=== PATIENT | male | born 1960 | race Caucasian/White ===

== ENCOUNTER 2018-07-30 16:31 | Inpatient (IN) | payer OTHER ==
[~2018-07-30] VITALS: Ht 182.9 cm; Wt 86.4 kg
[2018-07-30 16:40] VITALS: BP 112/61
[2018-07-30] MEDS ORDERED: MAGOX 400400 MG PO (16:44)
[2018-07-30] MEDS ORDERED: KLOR-CON 1010 MEQ PO (16:44)
[2018-07-30] MEDS ORDERED: ZANTAC 150MG T150 MG PO (16:44)
[2018-07-30] MEDS ORDERED: K-PHOS #2 TABL1 EACH PO (16:45)
[2018-07-30] MEDS ORDERED: PROTONIX40 M1 PO (16:45)
[2018-07-30] MEDS ORDERED: ONE DAILY FOR1 EACH PO (16:45)
[2018-07-30 17:05] LABS: HEMATOCRIT 36.5 % (42.0-52.0); HEMOGLOBIN 12.1 gm/dL (14.0-18.0); MCH 31.6 pg (26.0-34.0); MCHC 33.3 g/dL (28.0-37.0); MCV 95.1 fL (80.0-100.0); NUCLEATED RBCS 0 /100WBC; PLATELET COUNT* 316 thou/uL (150-400); RBC 3.84 mil/uL (4.50-6.00); RDW-CV 14.8 % (10.5-14.5); WBC 23.7 thou/uL (4.0-11.0)
[2018-07-30 17:21] LABS: ALBUMIN 1.5 g/dL (3.4-5.0); APTT 28.7 Seconds (25.0-31.3); CALCIUM 8.3 mg/dL (8.5-10.1); CREATININE 0.7 mg/dL (0.6-1.3); INR 1.3; TOTAL BILIRUBIN 0.5 mg/dL (<0.1-1.0); TOTAL PROTEIN 5.6 g/dL (6.4-8.2)
[2018-07-30 17:23] LABS: POTASSIUM 2.8 mmol/L (3.5-5.1)
[2018-07-30 17:29] LABS: INFLUENZA A ANTIGEN None Detected (None Detect); INFLUENZA B ANTIGEN None Detected (None Detect)
[2018-07-30 18:02] LABS: ABSOLUTE LYMPHOCYTES 1.7 thou/uL (0.8-5.3); ABSOLUTE MONOCYTES 0.9 thou/uL (0.0-1.2); ABSOLUTE NEUTROPHILS 21.1 thou/uL (1.6-8.1)
[2018-07-30 18:03] LABS: LARGE PLATELETS OCCASIONAL; PLATELET ESTIMATE ADEQUATE
[2018-07-30 19:38] LABS: URINE BILIRUBIN NEGATIVE (Negative); URINE BLOOD TRACE (Negative); URINE CLARITY CLEAR; URINE COLOR YELLOW; URINE GLUCOSE-RANDOM NEGATIVE (Negative); URINE KETONES NEGATIVE (Negative); URINE LEUKOCYTES-REFLEX NEGATIVE (Negative); URINE NITRITE-REFLEX NEGATIVE (Negative); URINE PROTEIN NEGATIVE (Negative); URINE SPECIFIC GRAVITY <= 1.005 (1.005-1.030)
[2018-07-30 20:03] VITALS: BP 99/53
[2018-07-30 20:04] LABS: AMP/METHAMP Negative (Negative); BARBITURATES Negative (Negative); BENZODIAZEPINES Negative (Negative); COCAINE Negative (Negative); METHADONE Negative (Negative); OPIATES Negative (Negative); PCP Negative (Negative); THC Negative (Negative)
[2018-07-30 20:22] VITALS: BP 100/57
[2018-07-31 04:00] VITALS: BP 125/60
--- NOTE | 2018-07-31 04:29 | NUR ---
ASSUMED CARE FROM THE ER AT 2020. PT IS ALERT AND OREINTED. VSS. PERRLA. UP AD BHARTI. PT REQUIRING 2 LITERS OF O2. PT GIVEN LOVENOX. PULMONARY CONSULTED. PT IS SINUS TACHYCARDIA ON THE TELEMETRY. PT IS RESTING COMFORTABLY IN BED. RESPIRATIONS ARE EVEN AND NONLABORED. WILL CONTINUE TO MONITOR PT.
[2018-07-31 08:00] VITALS: BP 111/69
--- NOTE | 2018-07-31 08:30 | NUR ---
RECEIVED REPORT AND ASSUMED CARE OF PT AT 0730.PT IS A/OX4.TRACING SR ON THE MONITOR.ON 2 L NC.IV PATENT WITH FLUIDS INFUSING.IV ANTIBIOTIC GIVEN PER ORDER.US LOWER EXTRIMITIES COMPLETED AND FOUND DVT ON BOTH LEGS,RESULT NOTIFIED TO SPUTUM CULTURE AND MRSA NARES SWAB COLLECTED.PRODUCTIVE COUGH PRESENT WITH WILL SPUTUM.NO COMPLAINTS OF PAIN AND SOA.CALL LIGHT AND FALL PRECAUTIONS IN PLACE.WILL CONTINUE TO MONITOR.
[2018-07-31 08:45] LABS: ABSOLUTE BASOPHILS 0.1 thou/uL (0.0-0.2); ABSOLUTE LYMPHOCYTES 0.5 thou/uL (0.8-5.3); ABSOLUTE MONOCYTES 0.5 thou/uL (0.0-1.2); ABSOLUTE NEUTROPHILS 19.1 thou/uL (1.6-8.1); BASOPHILS 0.3 %; HEMATOCRIT 33.7 % (42.0-52.0); LYMPHOCYTES 2.6 %; MCH 31.4 pg (26.0-34.0); MCHC 32.6 g/dL (28.0-37.0); MCV 96.6 fL (80.0-100.0); MONOCYTES 2.7 %; MPV 9.5 fl. (7.2-11.1); NUCLEATED RBCS 0 /100WBC; PLATELET COUNT* 288 thou/uL (150-400); POLYS 94.4 %; RBC 3.49 mil/uL (4.50-6.00); RDW-CV 15.1 % (10.5-14.5); WBC 20.2 thou/uL (4.0-11.0)
[2018-07-31 09:05] LABS: ALBUMIN 1.4 g/dL (3.4-5.0); CALCIUM 8.5 mg/dL (8.5-10.1); CREATININE 0.8 mg/dL (0.6-1.3); POTASSIUM 3.6 mmol/L (3.5-5.1); TOTAL BILIRUBIN 0.4 mg/dL (<0.1-1.0)
--- NOTE | 2018-07-31 10:21 | EKG ---
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: : 1960 Requested By: Ann Del Valle Order Number: [id number] MD: Clayton Rivero Measurements Intervals [place] Rate: 104 P: 92 OR: 142 QRS: 93 QRSD: 96 T: 77 QT: 376 QTc: 495 Interpretive Statements Sinus tachycardia Multiform ventricular premature complexes Anteroseptal infarct, age indeterminate No previous ECG available for comparison Electronically Signed On 07-31-2018 10:21:20 CDT by Clayton Rivero [email or web address] <ELECTRONICALLY SIGNED> By: Clayton Rivero MD, [facility] 07/31/18 102 09 09 Clayton Rivero MD, FAC /EPI
--- NOTE | 2018-07-31 11:12 | NUR ---
Pt was out of room when CM went to assess, will f/u later
[2018-07-31 12:06] VITALS: BP 97/54
[2018-07-31 15:25] VITALS: BP 98/50
--- NOTE | 2018-07-31 17:27 | 2DMMODE ---
[place] [address] 2 D/M-MODE ECHOCARDIOGRAM Name: MOLLY SEPULVEDA Room: [address] IN [facility]#: [id number] Admission: 07/30/18 Attend Phys: Brenda Whitaker, Discharge: Date of : 62 Date of Service: 07/31/18 1726 Report #: [id number] THIS REPORT FOR: //name// APPROVED REPORT Study performed: 07/31/2018 13:48:56 EXAM: Comprehensive 2D, Doppler, and color-flow Echocardiogram Patient Location: In-Patient Room #: 220 Status: routine BSA: 2.01 HR: 104 bpm BP: 111/69 mmHg Rhythm: NSR Other Information Study Quality: Good Indications Pulmonary Embolism Dyspnea 2D Dimensions IVSd: 11.90 (7-11mm) LVOT Diam: 19.16 (18-24mm) LVDd: 47.87 mm PWd: 9.91 (7-11mm) Ascending Ao: 30.40 (22-36mm) LVDs: 22.00 (25-40mm) Aortic Root: 29.55 mm Volumes Left Atrial Volume (Systole) LA ESV Index: 18.90 mL/m2 Aortic Valve AoV Peak Trae.: 1.45 m/s AO Peak Gr.: 8.43 mmHg LVOT Max P.47 mmHg AO Mean Gr.: 5.10 mmHg LVOT Mean P.80 mmHg LVOT Max V: 0.93 m/s AO V2 VTI: 23.30 cm LVOT Mean V: 0.62 m/s AILYN (VTI): 1.98 cm2 LVOT V1 VTI: 15.97 cm Mitral Valve E/A Ratio: 1.11 MV Decel. Time: 275.57 [place] [address] 2 D/M-MODE ECHOCARDIOGRAM Name: MOLLY SEPULVEDA Room: [address] IN ..#: [id number] Admission: 07/30/18 Attend Phys: Brenda Whitaker, Discharge: Date of : 62 Date of Service: 07/31/18 1726 Report #: [id number] E Max Trae.: 0.76 m/s MV PHT: 79.91 ms MVA (PHT): 2.75 cm2 TDI E/Medial E': 6.33 Medial E' Trae.: 0.12 m/s Tricuspid Valve RAP Estimate: 5.00 mmHg TR Peak Gr.: 25.03 mmHg RVSP: 30.00 mmHg PA Pressure: 30.00 mmHg Left Ventricle The left ventricle is normal size. There is normal LV segmental wall motion. There is normal left ventricular wall thickness. Left ventricular systolic function is normal. LVEF is 60-65%. The left ventricular diastolic function is normal. Right Ventricle The right ventricle is normal size. The right ventricular systolic function is normal. Atria The left atrium size is normal. The right atrium size is normal. Aortic Valve The aortic valve is normal in structure. No aortic regurgitation is present. There is no aortic valvular stenosis. Mitral Valve The mitral valve is normal in structure. There is no mitral valve regurgitation noted. No evidence of mitral valve stenosis. Tricuspid Valve The tricuspid valve is normal in structure. Mild tricuspid regurgitation. The RVSP is 30-35 mmHg. Pulmonic Valve The pulmonary valve is normal in structure. There is no pulmonic valvular regurgitation. Great Vessels The aortic root is normal in size. IVC is normal in size and collapses >50% [place] [address] 2 D/M-MODE ECHOCARDIOGRAM Name: MOLLY SEPULVEDA Room: [address] IN [facility]#: [id number] Admission: 07/30/18 Attend Phys: Brenda Whitaker, Discharge: Date of : 62 Date of Service: 07/31/18 1726 Report #: [id number] Pericardium There is no pericardial effusion. <Conclusion> The left ventricle is normal size. There is normal left ventricular wall thickness. Left ventricular systolic function is normal. LVEF is 60-65%. The left ventricular diastolic function is normal. Mild tricuspid regurgitation. The RVSP is 30-35 mmHg. IVC is normal in size and collapses >50% with inspiration. <ELECTRONICALLY SIGNED> By: Elijah Mullen MD, FACC 07/31/18 172 25 25 Elijah Mullen MD, FACC /INF
--- NOTE | 2018-07-31 17:54 | NUR ---
VSS.TRACING SR ON THE MONITOR.ON 2 L NC.IV PATENT WITH FLUIDS AND ANTIBIOTIC INFUSING.NO COMPLAINTS OF PAIN .US OF LOWER EXTREMITIES COMPLETED FOUND DVT ON BOTH LEGS.CT OF ABD/PELVIS W/C COMPLETED.NO COMPLAINTS OF SOA.NEW IV PLACED ON RAC FOR CT.NO SKIN ISSUES.UP AD BHARTI.HRLY ROUNDING COMPLETED.CALL LIGHT AND FALL PRECAUTIONS IN PLACE.WILL CONTINUE TO MONITOR.
--- NOTE | 2018-07-31 18:02 | NUR ---
I have reviewed the documentation by OLGA MCKINNEY from 729 to 1801 and I concur with it.
[2018-07-31 19:45] VITALS: BP 103/57
[2018-08-01] VITALS: BP 109/66
[2018-08-01 02:10] LABS: HIV-1/HIV-2 ANTIBODY Non Reactive (Non Reactive)
[2018-08-01 04:32] VITALS: BP 94/47
[2018-08-01 05:15] LABS: ABSOLUTE BASOPHILS 0.1 thou/uL (0.0-0.2); ABSOLUTE LYMPHOCYTES 0.7 thou/uL (0.8-5.3); ABSOLUTE MONOCYTES 0.5 thou/uL (0.0-1.2); ABSOLUTE NEUTROPHILS 16.4 thou/uL (1.6-8.1); BASOPHILS 0.3 %; LYMPHOCYTES 3.9 %; MCH 31.2 pg (26.0-34.0); MCHC 32.3 g/dL (28.0-37.0); MCV 96.6 fL (80.0-100.0); MONOCYTES 3.1 %; NUCLEATED RBCS 0 /100WBC; PLATELET COUNT* 294 thou/uL (150-400); POLYS 92.7 %; RBC 3.51 mil/uL (4.50-6.00); RDW-CV 15.1 % (10.5-14.5); WBC 17.7 thou/uL (4.0-11.0)
[2018-08-01 08:00] VITALS: BP 108/65
--- NOTE | 2018-08-01 08:02 | CON ---
[address] [address] CONSULTATION Name: SEPULVEDAMOLLY Room: [address] IN .R.#: [id number] Admission: 07/30/18 Attend Phys: Brenda Whitaker MD Discharge: Date of : 62 Report #: [id number] THIS REPORT FOR: //name// CC: Brenda Plazanh DATE OF SERVICE: 07/31/2018 INFECTIOUS DISEASE CONSULTATION: ATTENDING PHYSICIAN: Dr. Whitaker. REASON FOR EVALUATION: Complicated pneumonitis, possible lung abscess. HISTORY OF PRESENT ILLNESS: Chart reviewed, patient examined. This is a 58-year-old who reports no significant medical history, presented to the Emergency Room with complaints of progressive dyspnea and chest pain over 2-week period. Did have associated hemoptysis, was evaluated by primary care who directed him to the Emergency Room. Evaluation did not note hypoxemia; however, imaging raised question of bilateral pulmonary emboli, also possible infected blebs or abscesses in the left upper lobe. He denies any significant recent fevers. Denies any dental related complaints, although he has poor teeth. No gastrointestinal related complaints. Appetite has been somewhat diminished. He actually reports gaining 8 pounds. He had an elevated white count of 23,000. Urinalysis was otherwise unremarkable. He was started empirically on vancomycin and levofloxacin. ALLERGIES: None known. MEDICATIONS: Include levofloxacin, enoxaparin, vancomycin, methylprednisolone, famotidine, p.r.n. analgesics and antiemetics. PAST MEDICAL HISTORY: Poorly otherwise unremarkable. SOCIAL HISTORY: Smokes, last 44 years, less than half a pack a day. No illicit drug use. Distant past use of ethanol. FAMILY HISTORY: Noncontributory. REVIEW OF SYSTEMS: Otherwise unremarkable, except noted in the above. PHYSICAL EXAMINATION: VITAL SIGNS: Temperature 97.2, pulse 94, respirations 24, blood pressure 97/54. GENERAL: He appears chronically ill and undernourished. HEENT: Normocephalic. Extraocular muscle intact. Does have moderate [place] [address] CONSULTATION Name: MOLLY SEPULVEDA Room: [address] IN [facility]#: [id number] Admission: 07/30/18 Attend Phys: Brenda Whitaker MD Discharge: Date of : 62 Report #: [id number] NECK: Supple. LUNGS: Diminished breath sounds. Few scattered crackles. HEART: Regular. I do not appreciate a murmur. ABDOMEN: Soft, nontender, nondistended. EXTREMITIES: Some edema. GENITOURINARY: Deferred. RECTAL: Deferred. LABORATORY DATA: Rapid Strep A was negative. Chest x-ray, extensive left upper lobe and left perihilar dense infiltrate without significant pleural effusion. CT chest showed filling defects in the pulmonary arteries bilaterally, showed marked inflammatory changes throughout the entire left upper lobe suggesting pneumonitis, infected bulla versus pulmonary abscess, multiple bilateral small pulmonary emboli. Electrolytes showed sodium 141, potassium 2.8, chloride 97, bicarbonate is 39, BUN and creatinine 10 and 0.9, anion gap of 5, glucose of 121, AST of 55, ALT 36, alkaline phosphatase of 170, albumin of 1.5, total protein of 5.6. Estimated GFR of 116. PT of 13.0, INR of 1.3. Influenza antigen is negative. Lactic acid of 1.9 initially. Drug screen was negative. Prealbumin of 3.2. CBC: White count of 20.2, H and H 11.0 and 33.7, platelets of 288 and a lymphocytopenia of 500. A Doppler bilateral lower extremities showed nonocclusive compressible thrombus is present in the right common femoral vein as well as greater saphenous vein, noncompressible thrombus present throughout the entire right. Left common femoral is compressible, although there is noncompressible thrombus proximal left main femoral vein. ASSESSMENT: Complicated pneumonitis. Concerned about early abscess. Certainly, he is a little lax with apparently chronic medical history. I think there is probably an occult process given the hypercoagulable state. He is profound hypoalbuminemic as well. I think this warrants CT of the abdomen and pelvis, we will await blood cultures. I think it is reasonable for antimicrobials. We will add metronidazole as well for possible anaerobic due to his poor dentition, although his breath is not particularly malodorous. We will discuss with Dr. Fritz. <ELECTRONICALLY SIGNED> By: Kane Garnett MD 08/01/18 0802 1505 [id number] Garnett MD /nt
--- NOTE | 2018-08-01 10:10 | NUR ---
RECEIVED REP0RT AND ASSUMED CARE OF PT AT 0730.PT IS A/0X4.TRACING SR ON THE MONITOR.ON RA.IV PATENT WITH IV FLUIDS AND ANTIBIOTIC INFUSING.PRODUCTIVE COUGH PRESENT WITH WILL SPUTUM.GETTING LONONOX FOR DVT.ASSESSMENT COMPLETED.NO PAIN,NO SKIN ISSUES.NO EDEMA.UP AD BHARTI.HRLY COMPLETED.CALL LIGHT AND FALL PRECAUTIONS IN PLACE.WILL CONTINUE TO MONITOR.
--- NOTE | 2018-08-01 10:47 | NUR ---
Pt is A&O. Resides at home with his mom. Active and independent. No DME. No hx of HH or SNF. Goal is home at nd. No needs.
[2018-08-01 16:03] VITALS: BP 89/46
--- NOTE | 2018-08-01 17:13 | NUR ---
VSS.TRACING ST ON THE MONITOR.A/OX4.IV PATENT WITH FLUIDS INFUSING.UP AD BHARTI.IV ANTIBIOTICS GIVEN PER ORDER.VANC TROUGH TO BE DRAWN AT 1830.PERSISTENT COUGH WITH WILL SPUTUM PRESENT.NO COMPLAINTS OF PAIN AND SOA.ON RA.CXR COMPLETED TODAY.CALL LIGHT AND FALL PRECAUTIONS IN PLACE.
--- NOTE | 2018-08-01 18:00 | NUR ---
I have reviewed the documentation by OLGA MCKINNEY from 729 to 1799 and I concur with it.
[2018-08-01 20:00] VITALS: BP 112/66
[2018-08-02] VITALS (7 sets, daily range): BP systolic 95–127; BP diastolic 50–82
--- NOTE | 2018-08-02 03:42 | NUR ---
ASSUMED PT CARE AT APPROX 1930. PT IS AWAKE AND ORIENTED X4. VSS ON ROOM AIR. TRACING SR/ST ON CLINICAL RESEARCH ASSISTANT. DENIES PAIN/DISCOMFORT. PT STILL COUGHING UP WILL SPUTUM. NO DESATURATIONS NOTED. PT ABLE TO SLEEP THROUGH THE NIGHT. CALL LIGHT WITHIN REACH. HOURLY ROUNDING DONE FOR PT SATFETY.
[2018-08-02 05:26] LABS: ABSOLUTE LYMPHOCYTES 0.6 thou/uL (0.8-5.3); ABSOLUTE MONOCYTES 0.5 thou/uL (0.0-1.2); BASOPHILS 0.1 %; HEMATOCRIT 33.9 % (42.0-52.0); LYMPHOCYTES 5.2 %; MCH 31.4 pg (26.0-34.0); MCHC 32.4 g/dL (28.0-37.0); MCV 96.9 fL (80.0-100.0); MONOCYTES 4.7 %; MPV 8.9 fl. (7.2-11.1); NUCLEATED RBCS 0 /100WBC; PLATELET COUNT* 308 thou/uL (150-400); RBC 3.49 mil/uL (4.50-6.00); RDW-CV 14.6 % (10.5-14.5); WBC 11.1 thou/uL (4.0-11.0)
[2018-08-02 05:44] LABS: ALBUMIN 1.4 g/dL (3.4-5.0); CALCIUM 8.8 mg/dL (8.5-10.1); CREATININE 0.7 mg/dL (0.6-1.3); POTASSIUM 3.9 mmol/L (3.5-5.1); TOTAL BILIRUBIN 0.3 mg/dL (<0.1-1.0); TOTAL PROTEIN 5.9 g/dL (6.4-8.2)
--- NOTE | 2018-08-02 07:10 | NUR ---
CHANGE OF SHIFT, BEDSIDE REPORT GIVEN PATIENT SEEN AT BEDSIDE, IN BED ASLEEP ASSUMED PATIENT CARE
--- NOTE | 2018-08-03 02:52 | NUR ---
ASSUMED PT CARE AT APPROX 1930. PT IS AWAKE AND ORIENTED X4. VSS ON ROOM AIR. TRACING SR ON TELE. REASSESSMENT DONE AND CHARTED. PT DENIES PAIN/DISCOMFORT. NO DESATURATIONS/SOA NOTED. IV ANTIBIOTICS GIVEN PER MAY. CALL LIGHT WITHIN REACH. HOURLY ROUNDING DONE FOR PT SAFETY.
[2018-08-03 04:00] VITALS: BP 120/71
--- NOTE | 2018-08-03 07:25 | NUR ---
CHANGE OF SHIFT BEDSIDE REPORT GIVEN PATIENT SEEN AT BEDSIDE, IN BED ASLEEP ASSUMED PATIENT CARE
[2018-08-03 08:00] VITALS: BP 119/71
[2018-08-03 11:39] VITALS: BP 106/58
[2018-08-03 23:58] VITALS: BP 103/60
[2018-08-04 04:00] VITALS: BP 114/69
--- NOTE | 2018-08-04 04:30 | NUR ---
ASSUMED PT CARE AFTER REPORT. PT IS AWAKE AND ORIENTED X4. VSS ON ROOM AIR. FLOAT PHLEBOTOMIST IN PLACE TRACING SR. REASSESSMENT DONE AND CHARTED. PT DENIES PAIN/DISCOMFORT/SOA. PT ABLE TO SLEEP MOST OF THE NIGHT. CALL LIGHT WITHIN REACH. HOURLY ROUNDING DONE FOR PT SAFETY.
--- NOTE | 2018-08-04 08:27 | CON ---
[address] [address] CONSULTATION Name: DERICKMOLLY Ronnie Room: [address] IN M.R.#: [id number] Admission: 07/30/18 Attend Phys: Brenda Whitaker MD Discharge: Date of : 62 Report #: [id number] THIS REPORT FOR: //name// CC: Brenda Freeman DATE OF SERVICE: 07/31/2018 REQUESTING PHYSICIAN: Dr. Fritz. REASON FOR CONSULTATION: Pulmonary emboli, DVT, abnormal CAT scan. DISCUSSION: The patient is a 58-year-old man who presented to Dr. Freeman's office yesterday. He was a new patient for her, previously he been seen by physicians at [facility]. He was complaining of weakness. Over the last week or so, he has been coughing up some blood. This time, it has been darker brown. It has been non-massive. He was starting to get more short of breath. He quit smoking about 12 years ago. He is not on any inhalers or breathing treatments at home nor oxygen. When he was seen in the ED with hemoptysis, he was referred to the ED here at [facility]. He was seen there. Had imaging studies done, which included a CT scan of his chest that showed pulmonary emboli bilaterally. Also, question of pulmonary abscess versus infected emphysematous changes. He has also had imaging studies now done of his legs. Does have bilateral DVT noted. He has been started on high dose Lovenox. He is not a very forthcoming historian. Apparently, he has had several hospital stays and visits at [facility]. He was quite insistent that he was never told anything. However, when talking with him further, it appears he has had an extensive evaluation done there. He has had CAT scans done, head and abdomen. It is not clear if he had CT scans done of his chest. He has had several types of endoscopies. Unknown if these have been all upper endoscopy or if he has also had a bronchoscopy. He finally did admit they were concerned about his liver. They thought some of his issues were related to liver disease. He was not aware of any history of any clots, however. He has a history of tobacco abuse, but quit smoking greater than 10 years ago. He has not had pneumonia in the past that he is aware of. Denies any history of TB or exposure to it that he is aware of. Denies any fci time nor use of any other drugs. He notes his last drink of alcohol was 2 weeks ago. He ____ amount he was drinking prior to that, but does note that the physicians at [facility] were concerned about his alcohol use and his liver disease. He is able to tell me that he had a lot of labs which were abnormal. Also, he [place] [address] CONSULTATION Name: MOLLY SEPULVEDA Room: [address] IN ..#: [id number] Admission: 07/30/18 Attend Phys: Brenda Whitaker MD Discharge: Date of : 62 Report #: [id number] Otherwise, he denies having any other past medical history. Again, however, he is not very forthcoming. MEDICATIONS: He was provided from [facility] include mag oxide, Zantac, potassium, K-Phos, Protonix, multivitamins and folic acid. SOCIAL HISTORY: Former smoker as noted. Last drink alcohol 2 weeks ago. 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 FAMILY HISTORY: Positive for leukemia. Denies any lung disease in his family or other types of cancers. REVIEW OF SYSTEMS: ROS was done. No positives already noted above. He denies any difficulty swallowing. He states since April, he has lost about 70 pounds. Appetite has been fair. Denies any hematemesis or blood in his stools. He has had issues with lower extremity edema. No syncopal episodes; however, he has been weak. He denies any syncopal episodes. No recent dental work. PHYSICAL EXAMINATION: GENERAL APPEARANCE: A male who looks chronically ill and older than stated age. He is in no acute distress. He has no hemoptysis during the time I was seeing him or examining him. HEENT: Head is normocephalic. Sclerae nonicteric. Dentition is fair to poor. NECK: Negative for adenopathy. No JVD is noted. No supraclavicular adenopathy. HEART: Regular. He is mildly tachycardic. No S3 is heard. LUNGS: Show breath sounds to be diminished. A few faint crackles heard on the left side. No wheezing is heard. No dullness to percussion. Excursion is equal. No CVA tenderness. ABDOMEN: Soft, but mildly distended. Does appear to have some anasarca. He does have edema noticed lower extremities, at least 2+. Does have some generalized discomfort noted. SKIN: Turgor is fair. No clubbing is noted. NEUROLOGIC: He is alert and oriented x 3. LABORATORY AND X-RAY FINDINGS: Films were reviewed. He did have a portable chest film done initially, which did show extensive infiltrates seen on the left side. This was followed up with a CT scan of his chest. He had bilateral pulmonary emboli seen. He also has extensive consolidation seen on the left side. He has infected blebs or abscesses on the left side. No pleural effusions. No infiltrates noted on the right side. On his chemistries, BUN is 8, creatinine 0.8, bicarbonate is 31, potassium yesterday was 2.8, it is 3.6 today. Albumin 1.4. Total protein 6.0. Transaminase is normal. Lipase was 477, alkaline phosphatase 141. INR was 1.3. D-dimer 7.76. Drug screen was negative. White blood cell count yesterday 23,700 and 20,200 [place] [address] CONSULTATION Name: MOLLY SEPULVEDA Room: [address] IN [facility]#: [id number] Admission: 07/30/18 Attend Phys: Brenda Whitaker MD Discharge: Date of : 62 Report #: [id number] 11.0, hematocrit 33.7, MCV 96.6. Platelets are normal. Does have a mild lymphopenia. Influenza screen was negative. Prealbumin 3.2. Rapid Strep screen was negative. UA was positive for small amounts of blood. Blood cultures have been sent. Sputum culture is also pending. Venous Dopplers were done, which does show bilateral DVT, right greater than left. IMPRESSION: 1. Thromboembolic disease. He has bilateral lower extremity deep venous thrombosis as well as bilateral pulmonary emboli. He has been relatively inactive at home actually since the first of the year. It is not clear if he may have other risk factors such as an underlying malignancy. 2. Extensive infiltrate left lung. Either has potential abscess or infected bleb with air fluid levels. He does have marked emphysematous changes. Some of this could be infection. 3. Non-massive hemoptysis. May be from pulmonary embolism. 4. Anemia. 5. Elevated lipase, alkaline phosphatase. By history, he was told he had some liver abnormalities at [facility]. It is not clear what their testing revealed there. 6. History of alcohol abuse. 7. Possible chronic obstructive pulmonary disease. Definite emphysematous changes on films. 8. Weight loss. It is not clear. 9. Protein-calorie malnutrition. Low albumin and protein levels. Some of this could be from decreased synthesis from the liver. Also, poor nutritional intake. RECOMMENDATIONS: 1. Discussed earlier with Dr. Garnett. He is doing imaging studies of his abdomen and pelvis. 2. We will need to get records from [facility]. Already, sounds like he has had an extensive evaluation. Need to see what those studies showed. 3. Would continue with anticoagulation therapy at this time. I will hold on bronchoscopy. 4. Follow up cultures as well. 5. Agree with broad-spectrum antibiotics. 6. Also, continue with neb treatments at this time. <ELECTRONICALLY SIGNED> By: Leigh Drake MD 08/04/18 0827 1550 [id number] Drake MD /nt
--- NOTE | 2018-08-04 08:27 | CON ---
[address] [address] CONSULTATION Name: MOLLY SEPULVEDA Room: [address] ADM IN M.R.#: [id number] Admission: 07/30/18 Attend Phys: Brenda Whitaker MD Discharge: Date of : 62 Report #: [id number] THIS REPORT FOR: //name// CC: Brenda Whitaker [facility] ADDENDUM Records from [facility] have become available. He has had hospitalizations there earlier this year. Based on those notes, it also appears he has had a prior hospitalization at [facility], which he had not disclosed to us. Reviewing those records, he apparently presented with weakness. He also had active alcohol withdrawal. He had markedly abnormal LFTs. He had extensive imaging studies done. He had a CT scan done of his chest on 05/25/2018. The notes indicate that he had "moderate emphysematous changes". There was no consolidation noted. He did have a 0.3 cm pulmonary nodule in the left upper lobe. He had no mediastinal or hilar adenopathy. No pleural effusions. He had an MRI done, which revealed marked hepatomegaly with severe hepatic steatosis. He had circumferential gallbladder wall thickening with edema. He had two complex cystic lesions seen in the pancreatic head and uncinate process. There was also note of a subtle slightly enhancing solid-appearing 2 cm area at the junction of the pancreatic head and uncinate process. He did have a clinic visit on 07/10/2018 to one of the [facility]. LABORATORY DATA: Labs done at that time revealed a normal BUN and creatinine. Albumin 3.3. Bilirubin was 1.1, alkaline phosphatase 153, AST 25 and ALT 10. White blood cell count 5300, hemoglobin 13.8, hematocrit of 41.5 and MCV 101. When he was hospitalized in late May at [facility], his LFTs were markedly elevated. A fairly extensive evaluation done. He also had the CT scan done of his abdomen and pelvis. Other laboratory evaluation done at that time revealed his HIV was negative. Alpha-1 antitrypsin level was negative. Additional labs included negative Sjogren's antibodies, TWAN-1 AB, negative Scl-70 antibody, ANCA screen was negative, KEERTHI screen was negative, mitochondrial antibody was negative. He also had testing for hemochromatosis. 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 The information sent, I do not see any EGDs, bronchoscopies for colonoscopies. <ELECTRONICALLY SIGNED> By: Leigh Drake MD 08/04/18 0827 1159 [id number] Drake MD /nt
--- NOTE | 2018-08-04 08:45 | NUR ---
REC'D REPORT FROM NOC RN, ASSUMED CARE OF PATTIENT APPROX 0730. A&OX4. ABLE TO COMMUNICATE NEEDS TO STAFF. ASSESSMENT COMPLETE, VS OBTAINED. HAIR STYLIST IN PLACE, NAEEM MARSHALL. O2 SATS 93% RA. PATIENT UP AD BHARTI IN ROOM WITH NONSKID SOCKS ON BLE. LOOKING FORWARD TO BEING DC'D TODAY. EDUCATION GIVEN R/T DC PROCESS. ANSWERED QUESTIONS TO PATIENT SATISFACTION. CALL LIGHT WITHIN REACH. HOURLY ROUNDING FOR SAFETY AND PATIENT NEEDS.
[2018-08-04 09:32] VITALS: BP 101/65
--- NOTE | 2018-08-04 12:17 | NUR ---
Pt discharging to home today, mother to provide dc transportation. CM provided Pt with a 30 day free Xarelto card, with instructions to get in to see his PCP as soon as possible, for continued assistance with med coverage. Pt stated that he does have health insurance through the [employer], states that his card came while he has been in the hospital. CM encouraged Pt to provide a copy to the hospital. Following.
[2018-08-04] MEDS ORDERED: XARELTO15 MG PO (12:53)
[2018-08-04] MEDS ORDERED: SPIRONOLACTONE25 M1 PO (12:54)
[2018-08-04] MEDS ORDERED: LEVAQUIN 500 M500 M2 PO (12:55)
[2018-08-04 13:02] VITALS: BP 101/65
--- NOTE | 2018-08-04 14:50 | NUR ---
PATIENT WITH COMPLETE DC ORDER. REVIEWED DISCHARGE INSTRUCTIONS AND MEDICATION LIST WITH PATIENT. ANSWERED ALL QUESTIONS TO PATIENT SATISFACTION. PATIENT'S IV AND TOURIST ESCORT HAVE BEEN DISCONTINUED. PATIENT IN POSSESSION OF ALL BELONGINGS. PATIENT AMBULATED OFF UNIT WITH THIS RN TO EMERGENCY DEPARTMENT EXIT. PATIENT'S MOTHER TO TRANSPORT PAITENT HOME IN PERSON VEHICLE.
== END 2018-08-04 14:45 | disposition home or self-care (01) | DRG 871 ==
LOC: M.ERS 16:31 → M.2W 18:28 → M.TBA-ER 18:28 → M.2W 19:32
PROVIDERS: Internal Medicine; Physician Assistant; Specialist; ADMIT Internal Medicine
DX: A41.9 Sepsis, unspecified organism (principal); I26.99 Other pulmonary embolism without acute cor pulmonale; J85.1 Abscess of lung with pneumonia; E46 Unspecified protein-calorie malnutrition; R18.8 Other ascites; I82.493 Acute embolism and thrombosis of other specified deep vein of lower extremity, bilateral; D64.9 Anemia, unspecified; J43.9 Emphysema, unspecified; K70.9 Alcoholic liver disease, unspecified; Z91.14 Patient's other noncompliance with medication regimen; Z68.25 Body mass index [BMI] 25.0-25.9, adult; Z87.891 Personal history of nicotine dependence; Z79.899 Other long term (current) drug therapy

== ENCOUNTER 2018-08-05 10:05 | Inpatient (IN) | payer OTHER ==
[~2018-08-05] VITALS: Ht 182.9 cm; Wt 87.1 kg
[~2018-08-05 10:05] MED LIST: K-PHOS #2 TABL1 EACH PO; KLOR-CON 1010 MEQ PO; LEVAQUIN 500 M500 M2 PO; MAGOX 400400 MG PO; ONE DAILY FOR1 EACH PO; PROTONIX40 M1 PO; SPIRONOLACTONE25 M1 PO; XARELTO15 MG PO; ZANTAC 150MG T150 MG PO
[2018-08-05 10:09] VITALS: BP 118/54
--- NOTE | 2018-08-05 10:25 | NUR ---
RT AT BEDSIDE ADMINISTERING BREATHING TREATMENT.
[2018-08-05 10:35] LABS: HEMATOCRIT 38.7 % (42.0-52.0); HEMOGLOBIN 12.6 gm/dL (14.0-18.0); MCHC 32.6 g/dL (28.0-37.0); MCV 95.1 fL (80.0-100.0); NUCLEATED RBCS 0 /100WBC; PLATELET COUNT* 412 thou/uL (150-400); RBC 4.07 mil/uL (4.50-6.00); RDW-CV 15.3 % (10.5-14.5); WBC 27.7 thou/uL (4.0-11.0)
[2018-08-05 10:42] LABS: ANION GAP 3 mmol/L (7-16); APTT 32.1 Seconds (25.0-31.3); BUN 10 mg/dL (7-18); CHLORIDE 97 mmol/L (98-107); CO2 34 mmol/L (21-32); CREATININE 0.8 mg/dL (0.6-1.3); GLUCOSE 89 mg/dL (70-99); INR 1.4; POTASSIUM 3.7 mmol/L (3.5-5.1); PROTIME 14.5 Seconds (9.20-11.50); SODIUM 134 mmol/L (136-145)
[2018-08-05 10:53] LABS: ALBUMIN 1.7 g/dL (3.4-5.0); ALKALINE PHOSPHATASE 102 U/L (46-116); NT-PRO BRAIN NAT PEPTIDE 696 pg/mL (<300); SGOT 20 U/L (15-37); SGPT 20 U/L (30-65); TOTAL BILIRUBIN 0.5 mg/dL (<0.1-1.0); TOTAL PROTEIN 5.7 g/dL (6.4-8.2); TROPONIN-I LEVEL <0.06 ng/mL (<0.06)
[2018-08-05 10:56] LABS: ABSOLUTE LYMPHOCYTES 0.6 thou/uL (0.8-5.3); ABSOLUTE MONOCYTES 2.8 thou/uL (0.0-1.2); ABSOLUTE NEUTROPHILS 24.4 thou/uL (1.6-8.1)
[2018-08-05 10:57] LABS: ANISOCYTOSIS 1+; PLATELET ESTIMATE INCREASED; POIKILOCYTOSIS 1+
--- NOTE | 2018-08-05 11:38 | NUR ---
KIRK NOTIFIED UPON PT RETURN FROM CT. PT CONNECTED TO O2. KIRK CONNECTED PT TO MONITOR
[2018-08-05 12:13] LABS: BE 3.9 mmol/L (-2 to +3); PCO2 45.7 mmHg (35.0-45.0); PO2 80.6 mmHg (75.0-100.0)
--- NOTE | 2018-08-05 12:48 | NUR ---
RT AT BEDSIDE ADMINISTERING BREATHING SECOND TREATMENT.
--- NOTE | 2018-08-05 14:47 | NUR ---
REPORT GIVEN TO OLGA RODRIGUEZ WHO IS TO ASSUME PT CARE INPATIENT NURSE.
[2018-08-05 14:48] VITALS: BP 103/50
[2018-08-05 16:07] LABS: URINE BILIRUBIN NEGATIVE (Negative); URINE BLOOD TRACE (Negative); URINE CLARITY CLEAR; URINE COLOR YELLOW; URINE GLUCOSE-RANDOM NEGATIVE (Negative); URINE KETONES NEGATIVE (Negative); URINE LEUKOCYTES NEGATIVE (Negative); URINE NITRITE NEGATIVE (Negative); URINE PROTEIN NEGATIVE (Negative); URINE SPECIFIC GRAVITY <= 1.005 (1.005-1.030); URINE UROBILINOGEN 0.2 E.U./dl (0.2-1.0)
[2018-08-05 16:11] VITALS: BP 90/64
--- NOTE | 2018-08-05 17:05 | EKG ---
[place] [address] ELECTROCARDIOGRAM REPORT Name: MOLLY SEPULVEDA Room: [address] ADM IN [facility].#: [id number] Admission: 08/05/18 Attend Phys: Imer Interiano Discharge: Date of : 62 Report #: [id number] THIS REPORT FOR: //name// [facility] ED Test Date: 2018-08-05 Test Time: 10:14:10 Pat Name: MOLLY SEPULVEDA Department: Room: [facility] Gender: M Outsole Scheduler: Ronnie HINTON : 1960 Requested By: Ann Del Valle Order Number: [id number] MD: Elijah Mullen Measurements Intervals [place] Rate: 132 P: 96 CA: 117 QRS: 89 QRSD: 85 T: -30 QT: 339 QTc: 503 Interpretive Statements Sinus tachycardia Low voltage, precordial leads Borderline repolarization abnormality Prolonged QT interval Compared to ECG 07/30/2018 17:10:53 Low QRS voltage now present Prolonged QT interval now present Ventricular premature complex(es) no longer present Myocardial infarct finding no longer present Electronically Signed On 08-05-2018 17:04:55 CDT by Elijah Mullen [email or web address] <ELECTRONICALLY SIGNED> By: Elijah Mullen MD, FACC 08/05/18 1704 1014 1014 Elijah Mullen MD, FAC /EPI
--- NOTE | 2018-08-05 18:36 | NUR ---
PT. ARRIVED TO ROOM 202. PT A/OX4, VSS, MONITOR PLACED TRACING ST. PT. DENIES CURRENT PAIN. ON 4L NC, WITH PRODUCTIVE COUGH. LUNG VIERA ARE DIMINISHED/TIGHT, BUT NO CURRENT WHEEZING/COARSENESS NOTED. FULL ASSESSMENT AND ADMISSION PROCESS COMPLETED. PT. EXHIBITS IAN. LE EDEMA, GREAT ON RIGHT THAN LEFT 3+. PT. ORIENTED TO ROOM/PROCEDURES. CALL LIGHT IN REACH, WILL CONTINUE WITH PLAN OF CARE.
[2018-08-05 20:00] VITALS: BP 95/64
[2018-08-05 23:39] VITALS: BP 117/70
[2018-08-06 04:00] VITALS: BP 110/57
--- NOTE | 2018-08-06 07:47 | NUR ---
PATIENT IS ALERT AND ORIENTED X4. VSS, O2 SUPPORT NC 4L/M. HE HAS DIFFICULTY BREATHING WHILE LAYING ON BED, EXTRA PILLOWS PROVIDED FOR SUPPORT. NS RUNNING AT 100 MLS/HR.
[2018-08-06 08:00] VITALS: BP 104/58
--- NOTE | 2018-08-06 11:26 | NUR ---
Pt is A&O. Known to this CM from previous hospital stay, Pt was just dc a few days ago. During that stay, Pt stated that he now has health insurance through the [employer], Pt states that he did not bring in his card. Pt is independent. Resides at home with his mom. No DME or hx of HH/SNF. Goal is home at nd. Cm provided Pt with Xarelto card during last hospital stay. Following.
[2018-08-06 12:16] VITALS: BP 97/53
--- NOTE | 2018-08-06 12:34 | NUR ---
ASSUMED CARE OF PT AT 0730. PT SITTING ON EDGE OF BED. PT A&0X4, DENIES ANY PAIN OR SHORTNESS OF BREATH AT THIS TIME. PT TRACING ST ON THE SPRAY GUN SIZER. RATE IN THE LOW 100'S. PT ON 4L NC SAT UPPER 90'S. IVF. IV ABX. PT UP AD BHARTI IN ROOM. EDEMA NOTED TO BILATERAL LE'S. PT GOAL FOR TODAY IS IV ABX, INCREASE ACTIVITY AND TITRATE OXYGEN. AM ASSESSMENT CHARTED. MEDICATIONS PER MAY. PT REPOSITIONS SELF. HOURLY ROUNDING OBSERVED. BED IN LOW POSITION. CALL LIGHT WITHIN REACH. WILL CONTINUE PLAN OF CARE.
[2018-08-06 16:20] VITALS: BP 106/54
--- NOTE | 2018-08-06 18:39 | NUR ---
NO ACUTE CHANGES THROUGHOUT SHIFT. REFER TO CHARTING. PULMONARY CONSULT ORDERED TODAY PER DR HEBERT. MRSA SWAB OBTAINED AND SENT TO LAB. AWAITING RESULTS. PT PLACED IN CONTACT ISOLATION. PT SLOWLY PROGRESSING TOWARDS GOALS. CONTINUES TO TRACE SR/ST ON THE DELIVERY TRUCK DRIVER HEAVY. ON 4L NC SAT UPPER 90'S. PT DENIES ANY PAIN OR SHORTNESS OF BREATH THROUGHOUT SHIFT. IVF. PT UP AD BHARTI IN ROOM. MEDICATIONS PER MAY. PT REPOSITIONS SELF. HOURLY ROUNDING OBSERVED. BED IN LOW POSITION. CALL LIGHT WITHIN REACH. WILL CONTINUE PLAN OF CARE.
[2018-08-06 20:00] VITALS: BP 118/70
[2018-08-07] VITALS: BP 104/67
[2018-08-07 04:00] VITALS: BP 111/62
--- NOTE | 2018-08-07 04:39 | NUR ---
ASSUMED PT CARE AT APPROX 1930. PT IS AWAKE AND ORIENTED X4. VSS ON 4L/NC. CARD TABLE ATTENDANT IN PLACE TRACING ST. REASSESSMENT DONE AND CHARTED. PT IS SHORT OF AIR, STOPPED IVF AND DR PULLIAM INFORMED. NO FURTHER ORDERS RECIEVED. PT REMAINED ON SITTING POSITION TO SLEEP. PT STATED BREATHING IMPROVED A LITTLE WITH BREATHING TREATMENTS. CLOSELY MONITORED. HOURLY ROUNDING DONE FOR PT SAFETY. CALL LIGHT WITHIN REACH.
[2018-08-07 05:35] LABS: BASOPHILS 0.1 %; EOSINOPHILS 0.2 %; HEMATOCRIT 34.7 % (42.0-52.0); HEMOGLOBIN 11.3 gm/dL (14.0-18.0); LYMPHOCYTES 6.4 %; MCH 30.8 pg (26.0-34.0); MCHC 32.5 g/dL (28.0-37.0); MCV 94.9 fL (80.0-100.0); MONOCYTES 7.8 %; MPV 7.9 fl. (7.2-11.1); NUCLEATED RBCS 0 /100WBC; POLYS 85.5 %; RBC 3.66 mil/uL (4.50-6.00); RDW-CV 14.8 % (10.5-14.5)
[2018-08-07 05:45] LABS: ABSOLUTE LYMPHOCYTES 0.7 thou/uL (0.8-5.3); ABSOLUTE MONOCYTES 0.9 thou/uL (0.0-1.2); ABSOLUTE NEUTROPHILS 9.8 thou/uL (1.6-8.1); PLATELET COUNT* 315 thou/uL (150-400); WBC 11.5 thou/uL (4.0-11.0)
[2018-08-07 07:39] VITALS: BP 124/73
--- NOTE | 2018-08-07 09:03 | NUR ---
ASSUMED CARE OF PT AT 0730. PT RESTING IN BED WAITING FOR BREAKFAST. PT A&0X4, DENIES ANY PAIN OR SHORTNESS OF BREATH AT THIS TIME. PT TRACING SR/ST ON THE TITLE COORDINATOR. ON 4L NC SAT 98%. PT HAS PRODUCTIVE COUGH WITH THICK, BROWN AND YELLOW SPUTUM. SPUTUM SPECIMEN OBTAINED AND SENT TO LAB. PT UP AD BHARTI IN ROOM. PT TO HAVE REPEAT CXR THIS AM. PT GOAL FOR TODAY IS TO TITRATE OXYGEN, INCREASE ACTIVITY, AWAIT MRSA LAB RESULTS AND PULMONARY CONSULT. AM ASSESSMENT CHARTED. MEDICATIONS PER MAY. PT REPOSITIONS SELF. HOURLY ROUNDING OBSERVED. BED IN LOW POSITION. CALL LIGHT WITHIN REACH. WILL CONTINUE PLAN OF CARE.
[2018-08-07 11:41] VITALS: BP 130/73
[2018-08-07 16:01] VITALS: BP 128/80
--- NOTE | 2018-08-07 16:50 | NUR ---
NO ACUTE CHANGES THROUGHOUT SHIFT. REFER TO CHARTING. PT NOT PROGRESSING TOWARDS GOALS. MRSA RESULTS PENDING. PULMONARY CONSULT IN PLACE- ORDERS RECEIVED FOR IVC FILTER, LABS AND AFB CULTURE AND SMEAR. SPUTUM OBTAINED AND SENT TO LAB. PLAN IS FOR IVC FILTER TOMORROW 08/08. NEW IV PLACED TO L HAND. PT CONTINUES TO TRACE SR/ST ON THE CROSSBAR FRAME WIRER. ON 4L NC SAT UPPER 90'S. PT HAS SHORTNESS OF BREATH WITH EXERTION. PT UP AD BHARTI IN ROOM. DAUGHTER TO VISIT THIS AFTERNOON. MEDICATIONS PER MAY. PT REPOSITIONS SELF. HOURLY ROUNDING OBSERVED. BED IN LOW POSITION. CALL LIGHT WITHIN REACH. WILL CONTINUE PLAN OF CARE.
[2018-08-07 20:00] VITALS: BP 101/56
[2018-08-08] VITALS (8 sets, daily range): BP systolic 93–122; BP diastolic 48–72
--- NOTE | 2018-08-08 03:34 | NUR ---
ASSUMED PT CARE AT APPROX 1930. PT IS AWAKE AND ORIENTED X4. VSS ON 4L OF O2/NC. WORM FARMER IN PLACE TRACING SR/ST. REASSESSMENT DONE AND CHARTED. FOR IVC FILTER PLACEMENT IN AM. MAINTAINED NPO POST MIDNIGHT. NO DESATURATIONS NOTED. PT DENIES PAIN. WAS ABLE TO SLEEP SOME. CALL LIGHT WITHIN REACH. HOURLY ROUNDING DONE FOR PT SAFETY.
[2018-08-08 04:42] LABS: ABSOLUTE LYMPHOCYTES 0.3 thou/uL (0.8-5.3); ABSOLUTE MONOCYTES 0.2 thou/uL (0.0-1.2); ABSOLUTE NEUTROPHILS 7.7 thou/uL (1.6-8.1); BASOPHILS 0.4 %; EOSINOPHILS 0.6 %; HEMATOCRIT 32.6 % (42.0-52.0); HEMOGLOBIN 10.8 gm/dL (14.0-18.0); LYMPHOCYTES 4.1 %; MCH 31.5 pg (26.0-34.0); MCHC 33.2 g/dL (28.0-37.0); MCV 94.7 fL (80.0-100.0); MONOCYTES 2.8 %; MPV 8.2 fl. (7.2-11.1); NUCLEATED RBCS 0 /100WBC; PLATELET COUNT* 276 thou/uL (150-400); POLYS 92.1 %; RBC 3.44 mil/uL (4.50-6.00); RDW-CV 14.5 % (10.5-14.5); WBC 8.4 thou/uL (4.0-11.0)
--- NOTE | 2018-08-08 08:00 | NUR ---
REC'D REPORT FROM NOC RN, ASSUMED CARE OF PATIENT AT APPROX 0730. A&OX4, ABLE TO COMMUNICATE NEEDS TO STAFF. NPO FOR IVC FILTER PLACEMENT. PATIENT AWARE AND AGREEABLE TO THIS PLAN. ASSESSMENT COMPLETE. CALL LIGHT IN REACH.
--- NOTE | 2018-08-08 08:20 | NUR ---
REC'D REPORT FROM NOC RN, ASSUMED CARE OF PATIENT APPROX 0730. A&OX4, ABLE TO COMMUNICATE NEEDS TO STAFF. UP AD BHARTI IN ROOM, NPO FOR IR PROCEDURE TO PLACE IVC FILTER. CALL LIGHT WITHIN REACH. DIRECTOR OF PHYSICAL SECURITY IN PLACE, SR. HOURLY ROUNDING FOR SAFETY AND PATIENT NEEDS.
--- NOTE | 2018-08-08 09:40 | NUR ---
PATIENT OFF UNIT AT 0850 VIA BED AND IR STAFF. BACK FROM PROCEDURE AT 0920, REC'D REPORT FROM IR RN. PATIENT A&OX4. ABLE TO COMMUNICATE NEEDS TO STAFF. UNDERSTANDS AND IS AGREEABLE TO PLAN TO REMAIN SITTING UP UNTIL 1215. PT STATES, "YOU WILL MAKE SURE I STAY SITTING UP, RIGHT?" GOAL ESTABLISHED. VS OBTAINED, ASSESSMENT COMPLETED. LABOR OPERATOR IN PLACE, SR 70'S. O2 SATS 97& ON RA. PATIENT STATES, "CAN I GET SOME OF THAT PORTABLE OXYGEN FOR AT HOME?" EDUCATION GIVEN R/T QUALIFICATION FOR HOME O2 AND DEMONSTRATED PATIENT'S ROOM AIR STATUS AT THIS TIME. PATIENT STATES "BUT I WAS ON OXYGEN BEFORE." CONTINUED EDUCATION R/T OXYGEN NEEDS WILL BE NECESSARY. CALL LIGHT WITHIN REACH. NEXT BP AT 1000. HOURLY ROUNDING FOR SAFETY AND PATIENT NEEDS.
--- NOTE | 2018-08-08 12:02 | CON ---
[address] [address] CONSULTATION Name: SONNY SEPULVEDA Room: [address] IN .R.#: [id number] Admission: 08/05/18 Attend Phys: Imer Interiano Discharge: Date of : 62 Report #: [id number] THIS REPORT FOR: //name// CC: Manju Freeman DO Sonny Peña DO REQUESTING PHYSICIAN: Dr. Sonny Peña. REASON FOR CONSULTATION: Pneumonia, abnormal CAT scan, respiratory failure. DISCUSSION: The patient is a 58-year-old man who has a history of tobacco and alcohol abuse. He was just discharged from this facility on 08/04/2018 where he had been hospitalized and treated for pneumonia. Imaging studies at that time revealed fluid-filled blebs on the left side. However, he had extensive pulmonary emboli as well as extensive bilateral lower extremity DVT. He was started on anticoagulation therapy. He had been admitted because of nonmassive hemoptysis. That did improve. He was doing well, was not requiring any oxygen and he was discharged as noted. He was started on antibiotics. He notes he was able to get his Xarelto for use. He was afebrile and on room air at the time that he left the hospital. He was not having excessive amounts of secretions. Tentative plan was for him to complete a course of antibiotics, steroids and inhaled bronchodilators. Would need followup imaging in the future. Given the large clot burden that he had, he was not thought to be a good candidate for bronchoscopy at this time. He is somewhat vague as to when he did quit smoking. He did have hospital stays earlier this year at [place] and then several at [facility]. He had a clinic followup at [place] as well. He did have active alcohol withdrawal when he was at [facility] earlier this year. We were able to review results from those admissions. With the active alcohol withdrawal, also had markedly elevated LFTs. He had a significant weight loss. It was thought he probably had alcoholic hepatitis. He was counseled to stop drinking completely. He did have a CT scan done of his chest on 05/25/2018 at [facility]. Reports indicated that he had a "moderate emphysematous changes." No consolidation. He had a 0.3 cm nodule in the left upper lobe. There was no mediastinal or hilar adenopathy, no pleural effusions. He had extensive GI evaluation done though did not have any endoscopies as far as we could tell. He had markedly elevated LFTs, although it did improve. During that stay, additional serologies included alpha 1 antitrypsin level, which was negative, ANCA screen was negative, HIV was negative, currently he did have heterozygous for hemochromatosis mutation. It does appear when he had a followup in the [facility] in mid June, lab from that visit showed his LFTs [place] [address] CONSULTATION Name: SONNY SEPULVEDA Room: [address] IN ..#: [id number] Admission: 08/05/18 Attend Phys: Imer Interiano Discharge: Date of : 62 Report #: [id number] PAST MEDICAL HISTORY: As noted above. Denies any other types of surgeries. SOCIAL HISTORY: Smoker as noted. However, he quit some time ago, but was vague as to the amount. Also, has a history of alcohol abuse where he notes his last drink of alcohol was earlier this spring. FAMILY HISTORY: Positive for leukemia. No other lung disease in the family. REVIEW OF SYSTEMS: As noted above, he has had no additional cesia hemoptysis since discharge. Sputum, however, has been "like pus." He described it as yellowish-green, at times Brown. This year he has lost a total of about 70 pounds. Adin was aware of that and it was one of the keys of their evaluation. Ongoing issues with quite a bit of lower extremity edema. He denies any recent dental work. No palpitations, no syncopal episodes. He denies any vomiting. He has had no syncopal episodes. Although he had felt pretty good at the time of discharge, within 24 hours, he felt much weaker and rundown. PHYSICAL EXAMINATION: GENERAL APPEARANCE: A man who looks older than stated age. He does look chronically ill. Has O2 running via nasal cannula. HEENT: Head is normocephalic. Sclerae nonicteric. Mucous membranes are moist. Dentition is poor. NECK: Negative for adenopathy. Neck muscles well developed. Neck veins are little prominent. There is no supraclavicular adenopathy. HEART: Regular. He is mildly tachycardic at 122 beats per minute. No S3 is appreciated. LUNGS: Reveal breath sounds to be mildly diminished in general. Slight prolongation of expiratory phase. He does have a few faint rhonchi and crackles heard, primarily on the left side. There is no dullness to percussion. No subcutaneous emphysema. No CVA tenderness. ABDOMEN: Soft, without hepatosplenomegaly. No guarding or rebound tenderness. EXTREMITIES: He has no clubbing. Radial pulses are present. Lower extremities does have 3+ edema. SKIN: Turgor is fair. LABORATORY AND X-RAY FINDINGS: He had laboratory studies done when he was here earlier this month as well. Arterial blood gas done revealed a pH 7.42, pCO2 of 46, pO2 of 81, bicarbonate 29 with a saturation of 96% on 4 liters. White blood cell count up to 27,700 yesterday, down to 11,500 today. Hemoglobin 11.3, hematocrit 34.7. Platelets are normal. Overall, it appears his hemoglobin and hematocrit has been fairly stable. Prealbumin last week was only 4.6. His HIV was negative. Influenza screen was negative. Rapid strep screen was negative. Sputum culture was sent on his first hospital stay. The final culture stated only that it was "routine respiratory donna." AFB smear and culture was requested, but that was not done. Blood cultures [place] [address] CONSULTATION Name: SONNY SEPULVEDA Room: [address] IN [facility].#: [id number] Admission: 08/05/18 Attend Phys: Imer Interiano Discharge: Date of : 62 Report #: [id number] cultures were sent on admission, again those are pending. Echocardiogram done on 07/31/2018 revealed preserved LV function. EF was 60-65%. RV was normal. There was no evidence of pulmonary hypertension. Imaging studies done earlier this month, did show extensive pulmonary emboli. There was extensive infiltrate on the left side with fluid filled either blebs or cavity formation. No pleural effusions. CTA was repeated when he represented to the ED here. There has been progression of the infiltrates noted as well as some of the air fluid levels. No pneumothorax. Mild prominence of his lymph nodes, persistent findings of pulmonary emboli. Venous Dopplers were repeated on 08/05/2018 as well. They continued to show bilaterally nonocclusive thrombus in the common femoral veins through the popliteal veins bilaterally. IMPRESSION: 1. Extensive infiltrate with fluid filled blebs on left side. Given the fact, he had a fairly unremarkable CT chest in late May other than emphysematous changes, I believe it is more than likely an extensive pneumonia, most likely a necrotizing pneumonia, exact etiology not clear. He does have poor dentition. During some of that time, he did have active alcohol withdrawal, though it did not appear that he developed any infiltrates while he was hospitalized at [facility]. He denies any recent syncopal episodes, etc. 2. Bilateral pulmonary emboli and extensive lower extremity deep vein thrombosis. Unable to identify a definite risk factor. However, given his illnesses and his hospital stays, he has not been as active as he has been in the past. He could have an occult underlying malignancy. However, with the battery of tests done at [facility] within the last several months, it did not appear there was anything specific noted. 3. History of alcohol abuse. He did have alcoholic hepatitis earlier this year, LFTs have improved. 4. Probable chronic obstructive pulmonary disease, severity unknown. Former smoker. 5. Non-massive hemoptysis. Hemoglobin and hematocrit stable. RECOMMENDATIONS: 1. Continue broad-spectrum antibiotics. He is on 3 antibiotics, would continue with that. 2. Also start some IV steroids. 3. Continue neb treatments. 4. At some point, he may require bronchoscopy. Also given the significant findings in his left lung, he is at high risk for development of significant bleeding complications. It is a very difficult situation. I did not want to do bronchoscopy on him at this time given his high clot burden. Discussed earlier this morning with Dr. Peña. I would recommend an IVC filter be placed. With one of the retrievable ones, hopefully within 3-6 months it can be safely removed. However, this would allow us to stop his Xarelto if needed should he develop significant bleeding complication. Also, if bronchoscopy needs to be [address] [place] [address] CONSULTATION Name: SONNY SEPULVEDA Room: [address] IN .R.#: [id number] Admission: 08/05/18 Attend Phys: Imer Interiano Discharge: Date of : 62 Report #: [id number] continued in the future, could hold it temporarily. 5. Continue Xarelto while he is here. 6. Note that after I saw him, staff noted his heart rate was quite high after the nebulizer treatments and will change the albuterol to Xopenex. He will continue the ipratropium every 4 hours. 7. Prognosis certainly guarded, fairly extensive and impressive findings on his CT scan. <ELECTRONICALLY SIGNED> By: Leigh Drake MD 08/08/18 1202 1339 [id number] Drake MD /nt
[2018-08-09] VITALS: BP 101/59
--- NOTE | 2018-08-09 03:42 | NUR ---
PT ALERT ORIENTED. UP AD BHARTI. ON RA. INTERMITTENT PRODUCTIVE COUGHING. TELEMETRY SHOWS SR. FREQUENT IVPBS.
[2018-08-09 04:00] VITALS: BP 101/61
[2018-08-09 08:00] VITALS: BP 113/65
--- NOTE | 2018-08-09 08:00 | NUR ---
ASSUMED PT CARE AT 0700, PT LYING IN BED, CALL LIGHT IN REACH. VSS, RA, PRINCIPLE INDUSTRIAL HYGIENIST TRACING SINUS RHYTHM. LS DIMINISHED, CONGESTED COUGH WITH DARK GREEN PHLEGM. 3+ PITTING EDEMA TO BLE AND FEET, EDUCATED PT ON ELEVATING BLE WHEN SITTING UP, PT STATES UNDERSTANDING BUT REFUSES STATING "I CANT BREATH WHEN I SIT LIKE THAT." MULTIPLE BRUISES TO BUE, DENIES ANY PAIN OR SOA. WILL CONT POC.
[2018-08-09 12:41] VITALS: BP 101/62
[2018-08-09 16:00] VITALS: BP 98/58
--- NOTE | 2018-08-09 18:32 | NUR ---
PT UP IN CHAIR, CALL LIGHT IN REACH. VSS, SYRUP BLENDER CONT TO TRACE SINUS RHYTHM. HOURLY ROUNDING COMPLETED FOR SAFETY. LS DIMINISHED WITH RHONCHI, 3+ PITTING EDEMA TO BLE, CONT TO EDUCATE PT ON ELEVATING BLE. DENIES ANY PAIN/SOA.
[2018-08-09 20:00] VITALS: BP 113/62
[2018-08-10] VITALS: BP 115/58
[2018-08-10 04:14] VITALS: BP 98/54
--- NOTE | 2018-08-10 04:54 | NUR ---
ASSUMED CARE OF PT AT 1900 PT ALERT AND ORIENTED VSS PT RUNNING NSR ON THE MONITOR. PT DENIED ANY COMPLAINTS AND HAD NO NOTED RESPIRATORY DISTRESS NOTED. PT SLEPT UNIT 330 AM. WILL CONTINUE PLAN OF CARE.
[2018-08-10 05:09] LABS: ABSOLUTE LYMPHOCYTES 0.8 thou/uL (0.8-5.3); ABSOLUTE MONOCYTES 0.6 thou/uL (0.0-1.2); ABSOLUTE NEUTROPHILS 5.9 thou/uL (1.6-8.1); BASOPHILS 0.1 %; HEMOGLOBIN 10.7 gm/dL (14.0-18.0); LYMPHOCYTES 10.5 %; MCH 30.6 pg (26.0-34.0); MCHC 32.5 g/dL (28.0-37.0); MCV 93.9 fL (80.0-100.0); MONOCYTES 8.2 %; MPV 7.9 fl. (7.2-11.1); NUCLEATED RBCS 0 /100WBC; PLATELET COUNT* 311 thou/uL (150-400); POLYS 81.2 %; RBC 3.51 mil/uL (4.50-6.00); RDW-CV 15.2 % (10.5-14.5); WBC 7.3 thou/uL (4.0-11.0)
[2018-08-10 05:49] LABS: CREATININE 0.7 mg/dL (0.6-1.3); POTASSIUM 4.4 mmol/L (3.5-5.1)
[2018-08-10 08:00] VITALS: BP 109/69
--- NOTE | 2018-08-10 08:00 | NUR ---
ASSUMED PT CARE AT 0700, PT SITTING UP IN CHAIR, CALL LIGHT IN REACH, A&OX4, UP AD BHARTI. VSS, RA, BUSINESS PROCESS MODELER TRACING SINUS RHYTHM. LS CLEAR TO DIMINISHED, 4+ PITTING EDEMA TO BLE, 2+ TO ABD, CONT TO EDUCATE PT ON ELEVATING BLE FOR COMFORT PT HAS MULT DVT'S. CONT ON IV ABTS FOR PNU, DENIES ANY PAIN/SOA. WILL CONT POC.
[2018-08-10 12:06] VITALS: BP 104/56
[2018-08-10 16:25] VITALS: BP 108/57
--- NOTE | 2018-08-10 17:25 | NUR ---
PT UP IN CHAIR WITH BLE ELEVATED MOST OF DAY, DENIES ANY PAIN OR SOA, VSS, RA, AIR DRILL OPERATOR TRACING SINUS RHYTHM. CONT ON IV ABTS, LOOSE COUGH WITH DARK GREEN PHLEGM. PT UP AD BHARTI, HOURLY ROUNDING COMPLETE, POSSIBLE DC HOME TOMORROW PER DR PULLIAM.
[2018-08-10 19:45] VITALS: BP 118/60
[2018-08-11 00:02] VITALS: BP 108/54
[2018-08-11 04:00] VITALS: BP 121/63
--- NOTE | 2018-08-11 04:57 | NUR ---
RECEIVED REPORT AND ASSUMED CARE AT 1900. VSS. CARDIAC MONITORING IN PLACE. PT DENIES COMPLAINTS OF PAIN. ASSESSMENT COMPLETED CHARTED. PT UP AD BHARTI, ON RA. MEDICATION ADMIN PER EMAR. BED LOCKED IN LOWEST POSITION, CALL LIGHT WITHIN REACH. PT SPENT SHIFT IN RECLINER. HOURLY ROUNDING COMPLETED AND ALL NEEDS MET.
[2018-08-11 05:32] LABS: ABSOLUTE LYMPHOCYTES 0.7 thou/uL (0.8-5.3); ABSOLUTE MONOCYTES 0.5 thou/uL (0.0-1.2); ABSOLUTE NEUTROPHILS 5.2 thou/uL (1.6-8.1); BASOPHILS 0.1 %; HEMATOCRIT 33.9 % (42.0-52.0); HEMOGLOBIN 11.1 gm/dL (14.0-18.0); LYMPHOCYTES 10.5 %; MCH 30.8 pg (26.0-34.0); MCHC 32.8 g/dL (28.0-37.0); MCV 93.9 fL (80.0-100.0); MONOCYTES 7.6 %; MPV 8.2 fl. (7.2-11.1); NUCLEATED RBCS 0 /100WBC; PLATELET COUNT* 292 thou/uL (150-400); POLYS 81.8 %; RBC 3.61 mil/uL (4.50-6.00); RDW-CV 15.3 % (10.5-14.5); WBC 6.3 thou/uL (4.0-11.0)
[2018-08-11 05:53] LABS: CALCIUM 8.3 mg/dL (8.5-10.1); CREATININE 0.7 mg/dL (0.6-1.3); MAGNESIUM 1.9 mg/dL (1.8-2.4); POTASSIUM 4.1 mmol/L (3.5-5.1)
[2018-08-11 08:00] VITALS: BP 105/56
--- NOTE | 2018-08-11 08:00 | NUR ---
RECEIVED REPORT AND ASSUMED CARE OF PT AT 0730.PT IS A/0X4.TRACING SR-ST ON THE MONITOR.UP AD BHARTI.ON RA.BILATERAL LOWER EXTRIMITIES EDEMA PRESENT.IV PATENT WITH IV ANTIBIOTIC INFUSING PER ORDER.CONGESTED LUNGS WITH DIMINISHED LUNG SOUNDS.CHEST XRAY COMPLETED TODAY.CALL LIGHT AND FALL PRECAUTIONS IN PLACE.WILL CONTINUE TO MONITOR.
--- NOTE | 2018-08-11 11:17 | NUR ---
PT ORDERS RECEIVED AND ACKNOWLEDGED. PT DEMONSTRATES UP IN ROOM AD BHARTI STATUS W/O DME. PT DECLINES ACUTE PT SERVICES AT THIS TIME. WILL DISCHARGE PT ORDERS PER PT REQUEST.
[2018-08-11 12:00] VITALS: BP 109/56
[2018-08-11 16:00] VITALS: BP 114/65
--- NOTE | 2018-08-11 17:15 | NUR ---
VSS.PT IS A/OX4.TRACING SR ON THE MONITOR.ON RA.NEW IV PLACED ON R WRIST.UP AD LIG.BL LOWER EXTRIMITIES 4 + PITTING EDEMA PRESENT.CHEST X RAY COMPLETED TODAY.PT IS CONSISTENTLY COUGHING.ON RA.NO HEAMOMPTYSIS NOTED.PT COMPLAINTS OF PAIN ON HIS LEGS DUE TO EDEMA.ENCOURAGED TO LIFT HIS LEGS.CALL LIGHTS AND FALL PRECAUTIONS IN PLACE.WILL CONTINUE TO MONITOR.
[2018-08-11 19:50] VITALS: BP 102/65
[2018-08-12 00:29] VITALS: BP 115/62
[2018-08-12 04:00] VITALS: BP 107/73
[2018-08-12 05:42] LABS: INR 1.2
[2018-08-12 05:44] LABS: ABSOLUTE LYMPHOCYTES 1.3 thou/uL (0.8-5.3); ABSOLUTE MONOCYTES 0.6 thou/uL (0.0-1.2); ABSOLUTE NEUTROPHILS 4.9 thou/uL (1.6-8.1); BASOPHILS 0.2 %; EOSINOPHILS 0.2 %; HEMATOCRIT 37.4 % (42.0-52.0); HEMOGLOBIN 12.3 gm/dL (14.0-18.0); LYMPHOCYTES 19.6 %; MCH 30.8 pg (26.0-34.0); MCHC 32.8 g/dL (28.0-37.0); MONOCYTES 8.1 %; MPV 7.8 fl. (7.2-11.1); NUCLEATED RBCS 0 /100WBC; PLATELET COUNT* 312 thou/uL (150-400); POLYS 71.9 %; RBC 3.98 mil/uL (4.50-6.00); RDW-CV 15.3 % (10.5-14.5); WBC 6.8 thou/uL (4.0-11.0)
[2018-08-12 05:45] LABS: ALBUMIN 2.2 g/dL (3.4-5.0); CREATININE 0.7 mg/dL (0.6-1.3); TOTAL BILIRUBIN 0.3 mg/dL (<0.1-1.0); TOTAL PROTEIN 6.5 g/dL (6.4-8.2)
--- NOTE | 2018-08-12 05:46 | NUR ---
RECEIVED REPORT AND ASSUMED CARE AT 1900. VSS. CARDIAC MONITORING IN PLACE. PT DENIES COMPLAINTS OF PAIN. ASSESSMENT COMPLETED CHARTED. DISCUSSED PLAN OF CARE WITH PT, VERBALIZED UNDERSTANDING. PT UP AD BHARTI IN ROOM, ON RA. BED LOCKED IN LOWEST POSITION, CALL LIGHT WITHIN REACH, HOURLY ROUNDING COMPLETED AND ALL NEEDS MET.
[2018-08-12 08:00] VITALS: BP 113/64
--- NOTE | 2018-08-12 08:44 | NUR ---
Per [employer], Pt is not eligible for [place] Medicaid
[2018-08-12] MEDS ORDERED: AUGMENTIN 875-1 EACH PO (09:51)
[2018-08-12] MEDS ORDERED: PREDNISONE 20 M20 MG PO (09:57)
[2018-08-12 10:09] VITALS: BP 107/73
--- NOTE | 2018-08-12 11:05 | NUR ---
REVEIVED REPORT AND ASSUMED CARE OF PT AT 0730.PT IS A/OX4.TRACING SR ON THE MONITOR.ON RA.UP AD BHARTI.CALL LIGHT ND FALL PRECAUTIONS IN PLACE. PT OK TO DISCHARGE.DISCHARGE PAPER WORK COMPLETED.IV AND HEART MONITOR TAKEN OUT.DISCHARGE EDUCATION PROVIDED.ALL PERSONAL BELONGINGS GIVEN TO PT.PT WHEELED DOWN BY VOLUNTEER AT 1100.
== END 2018-08-12 11:00 | disposition home or self-care (01) | DRG 853 ==
LOC: M.ERS 10:05 → M.2W 13:02 → M.TBA-ER 13:02 → M.2W 15:23
PROVIDERS: Emergency Medicine; Family Medicine; Internal Medicine Pulmonary Disease; Physician Assistant; ADMIT Internal Medicine
PROC: 06H03DZ Insertion of Intraluminal Device into Inferior Vena Cava, Percutaneous Approach (ICD-10-PCS; principal; 2018-08-08)
DX: A41.9 Sepsis, unspecified organism (principal); I26.99 Other pulmonary embolism without acute cor pulmonale; J85.0 Gangrene and necrosis of lung; J96.91 Respiratory failure, unspecified with hypoxia; I82.413 Acute embolism and thrombosis of femoral vein, bilateral; I82.433 Acute embolism and thrombosis of popliteal vein, bilateral; J44.9 Chronic obstructive pulmonary disease, unspecified; D64.9 Anemia, unspecified; E88.09 Other disorders of plasma-protein metabolism, not elsewhere classified; F17.210 Nicotine dependence, cigarettes, uncomplicated; Z79.01 Long term (current) use of anticoagulants; Z79.899 Other long term (current) drug therapy; Z80.6 Family history of leukemia

== ENCOUNTER 2018-09-10 12:47 | Inpatient (IN) | payer OTHER ==
[~2018-09-10] VITALS: Ht 182.9 cm; Wt 83.9 kg
[~2018-09-10 12:47] MED LIST changes: +AUGMENTIN 875-1 EACH PO; +PREDNISONE 20 M20 MG PO
[2018-09-10 13:03] VITALS: BP 117/69
[2018-09-10] MEDS ORDERED: COUMADIN7.5 MG PO (13:10)
[2018-09-10 13:41] LABS: ABSOLUTE BASOPHILS 0.1 thou/uL (0.0-0.2); ABSOLUTE EOSINOPHILS 0.1 thou/uL (0.0-0.7); ABSOLUTE LYMPHOCYTES 1.4 thou/uL (0.8-5.3); ABSOLUTE MONOCYTES 1.5 thou/uL (0.0-1.2); ABSOLUTE NEUTROPHILS 4.9 thou/uL (1.6-8.1); BASOPHILS 0.9 %; HEMATOCRIT 37.4 % (42.0-52.0); HEMOGLOBIN 12.1 gm/dL (14.0-18.0); LYMPHOCYTES 17.5 %; MCHC 32.5 g/dL (28.0-37.0); MCV 89.2 fL (80.0-100.0); MONOCYTES 18.6 %; MPV 7.2 fl. (7.2-11.1); NUCLEATED RBCS 0 /100WBC; PLATELET COUNT* 385 thou/uL (150-400); RBC 4.19 mil/uL (4.50-6.00); RDW-CV 16.4 % (10.5-14.5)
[2018-09-10 13:45] LABS: ANION GAP 12 mmol/L (7-16); BUN 6 mg/dL (7-18); CHLORIDE 104 mmol/L (98-107); CO2 26 mmol/L (21-32); CREATININE 0.7 mg/dL (0.6-1.3); GLUCOSE 113 mg/dL (70-99); POTASSIUM 3.8 mmol/L (3.5-5.1); SODIUM 142 mmol/L (136-145)
[2018-09-10 13:46] LABS: APTT 32.4 Seconds (25.0-31.3); INR 1.4; PROTIME 14.2 Seconds (9.20-11.50)
[2018-09-10 13:55] LABS: ALBUMIN 2.7 g/dL (3.4-5.0); ALKALINE PHOSPHATASE 102 U/L (46-116); LIPASE 72 U/L (73-393); MAGNESIUM 1.7 mg/dL (1.8-2.4); NT-PRO BRAIN NAT PEPTIDE 212 pg/mL (<300); SGOT 15 U/L (15-37); SGPT 18 U/L (30-65); TOTAL BILIRUBIN 0.5 mg/dL (<0.1-1.0); TOTAL PROTEIN 7.3 g/dL (6.4-8.2); TROPONIN-I LEVEL <0.06 ng/mL (<0.06)
[2018-09-10 15:42] VITALS: BP 102/64
[2018-09-10 16:00] VITALS: BP 116/67
[2018-09-10 20:17] VITALS: BP 107/70
[2018-09-11] VITALS: BP 102/64
[2018-09-11 04:00] VITALS: BP 118/69
[2018-09-11 07:50] VITALS: BP 112/65
[2018-09-11 16:00] VITALS: BP 103/55
--- NOTE | 2018-09-11 17:11 | EKG ---
[place] [address] ELECTROCARDIOGRAM REPORT Name: MOLLY SEPULVEDA Room: [address] ADM IN [facility].#: [id number] Admission: 09/10/18 Attend Phys: Imer Interiano Discharge: Date of : 62 Report #: [id number] THIS REPORT FOR: //name// [facility] ED Test Date: 2018-09-10 Test Time: 13:01:24 Pat Name: MOLLY SEPULVEDA Department: Room: [facility] Gender: M Fancy Sewer: SHARIF : 1960 Requested By: Edwar Pisano Order Number: [id number] MD: Elijah Mullen Measurements Intervals [address] Rate: 128 P: 90 MT: 128 QRS: 89 QRSD: 73 T: QT: 327 QTc: 477 Interpretive Statements Sinus tachycardia Borderline T wave abnormalities Baseline wander in lead(s) II,V1,V2,V3,V4 Compared to ECG 08/05/2018 10:14:10 T-wave abnormality now present Electronically Signed On 09-11-2018 17:11:06 CDT by Elijah Mullen [email or web address] <ELECTRONICALLY SIGNED> By: Elijah Mullen MD, FACC 09/11/18 1711 1301 1301 Elijah Mullen MD, [facility] /EPI
[2018-09-11 20:15] VITALS: BP 100/57
[2018-09-11 23:06] VITALS: BP 103/61
[2018-09-12 03:42] VITALS: BP 109/71
--- NOTE | 2018-09-12 07:41 | CON ---
[address] [address] CONSULTATION Name: SONNY SEPULVEDA Room: [address] IN .R.#: [id number] Admission: 09/10/18 Attend Phys: Imer Interiano Discharge: Date of : 62 Report #: [id number] THIS REPORT FOR: //name// CC: Manju Peña DATE OF SERVICE: 09/11/2018 INFECTIOUS DISEASE CONSULTATION ATTENDING PHYSICIAN: Sonny Peña DO REASON FOR EVALUATION: Left-sided lung abscess. HISTORY OF PRESENT ILLNESS: Chart reviewed and the patient examined. This is a 58-year-old known to myself, who was hospitalized roughly a month ago with complaints of shortness of breath, cough, and was found to have imaging suggested necrotizing pneumonia and likely left upper lobe abscess with air fluid level. He had been discharged to follow up; however, he had not been seen. He completed his course of antimicrobial therapy with Augmentin as well as corticosteroids. Shortly thereafter, developed increasing cough and dyspnea, is productive of white mccormack really thick exudate. He did have some recent fevers. Thus, his appetite has been good. Weight is actually stable. He denies any significant GI related complaints. ALLERGIES: None known. MEDICATIONS: Include spironolactone, pantoprazole, warfarin, multivitamin, levofloxacin, methylprednisolone, ipratropium, and albuterol inhaler. PAST MEDICAL HISTORY: Pulmonary emboli and COPD with emphysematous component. FAMILY HISTORY: Available in the chart. REVIEW OF SYSTEMS: As noted in 10-point review of systems, as above. PHYSICAL EXAMINATION: GENERAL: He is pleasant, alert, cooperative, appears to be reasonably well nourished. He has appearance of some chronically ill appearing. VITAL SIGNS: Temperature 98, pulse 104, respirations 16, and blood pressure is 112/65. SKIN: Warm. HEENT: Normocephalic. Extraocular muscles are intact. Dentition is moderate, marked disrepair. NECK: Supple. LUNGS: Diminished overall scattered coarse sounds, [place] [address] CONSULTATION Name: SONNY SEPULVEDA Room: [address] IN [facility]#: [id number] Admission: 09/10/18 Attend Phys: Imer Interiano Discharge: Date of : 62 Report #: [id number] HEART: Regular. I do not appreciate a murmur. ABDOMEN: Soft. GENITOURINARY AND RECTAL: Deferred. LABORATORY/RADIOLOGIC DATA: Blood cultures sterile thus far. Lactic acid initially 2.8 and repeat was 1.2. CTA chest PE protocol, no evidence of PE, significant improvement from previous demonstrated findings of a large infected left upper lobe bleb, bulla, much less debris and diminished fluid within the large bulla, persistent air fluid levels. Electrolytes: Sodium 142, potassium 3.8, chloride 104, bicarbonate is 26, anion gap of 12, BUN and creatinine 6 and 0.7, and glucose of 113. LFTs are unremarkable. Albumin of 2.7 and total protein of 7.3. CBC: White count of 8.0, hemoglobin and hematocrit 12.1 and 37.4 and platelets of 385, ____ monocytosis. ASSESSMENT: Necrotizing pneumonia/pulmonary abscess. Continue therapy, adjust antimicrobial, recollect sputum at this point and sent for AFB ____ have repeat evaluation by Pulmonary. I had a lengthy discussion with the patient, it is unfortunate that he was not able to follow up, we likely have extended the antibiotics. He continues to expectorate which suggests there is a communication with the airway. Overall imaging seems to have improved. <ELECTRONICALLY SIGNED> By: Kane Garnett MD 09/12/18 0741 1532 [id number] Garnett MD /nt
[2018-09-12 08:10] VITALS: BP 101/63
[2018-09-12 11:30] LABS: CALCIUM 9.5 mg/dL (8.5-10.1); MAGNESIUM 1.9 mg/dL (1.8-2.4); POTASSIUM 4.1 mmol/L (3.5-5.1)
[2018-09-12 11:32] LABS: INR 1.6; PROTIME 16.1 Seconds (9.20-11.50)
[2018-09-12 11:33] VITALS: BP 102/54
[2018-09-12 15:00] VITALS: BP 115/64
[2018-09-12 18:04] VITALS: BP 100/56
[2018-09-12 19:50] VITALS: BP 108/60
[2018-09-13] VITALS: BP 115/59
[2018-09-13 04:00] VITALS: BP 100/56
[2018-09-13 08:00] VITALS: BP 102/67
[2018-09-13 12:00] VITALS: BP 91/57
[2018-09-13 16:00] VITALS: BP 96/45
[2018-09-13 20:00] VITALS: BP 119/60; BP 95/51
[2018-09-14] VITALS: BP 122/72
[2018-09-14 04:00] VITALS: BP 100/56
[2018-09-14 04:45] LABS: HEMATOCRIT 34.4 % (42.0-52.0); HEMOGLOBIN 11.2 gm/dL (14.0-18.0); MCH 29.4 pg (26.0-34.0); MCHC 32.5 g/dL (28.0-37.0); MCV 90.4 fL (80.0-100.0); MPV 7.6 fl. (7.2-11.1); RBC 3.81 mil/uL (4.50-6.00); RDW-CV 16.5 % (10.5-14.5); WBC 5.6 thou/uL (4.0-11.0)
[2018-09-14 04:59] LABS: CREATININE 0.8 mg/dL (0.6-1.3); POTASSIUM 4.6 mmol/L (3.5-5.1)
[2018-09-14 08:02] VITALS: BP 101/60
[2018-09-14 12:00] VITALS: BP 112/65
[2018-09-14 20:00] VITALS: BP 119/60
[2018-09-15 00:42] VITALS: BP 106/59
[2018-09-15 08:20] VITALS: BP 106/71
--- NOTE | 2018-09-15 09:53 | CON ---
[address] [address] CONSULTATION Name: MOLLY SEPULVEDA Room: [address] IN ..#: [id number] Admission: 09/10/18 Attend Phys: Imer Interiano Discharge: Date of : 62 Report #: [id number] THIS REPORT FOR: //name// CC: Manju Peña HISTORY OF PRESENT ILLNESS: The patient is a 58-year-old male patient who presented to the hospital with increasing shortness of breath, cough and increasing sputum production. His primary care doctor did a chest x-ray that was abnormal and he was sent to the ER. The patient reported that he is producing sputum greenish to yellowish in color and very thick, although he is not sure if he had a fever, maybe earlier this week. He is supposed to be on Coumadin, although his INR was 1.4 and he reports compliance to his medications. Reviewing his record indicated he was hospitalized multiple times before hospitalization was 08/05/2018. He was seen by Dr. Drake at that time, he had left upper lobe bullae that with air fluid level suggestive of an infection versus abscess and he had infiltrate at that time. Also, he has pulmonary embolus and DVT, status post IVC filter. At one point, he was on Xarelto and then changed to Coumadin for financial reasons. He was discharged on 2 weeks antibiotic and apparently he did followup with Dr. Garnett, Infectious Disease specialist or office, although he told me that he has an appointment in October in our office. He said he quit smoking a few months ago. He reported occasional wheezes. He has history of alcohol abuse too. His workup included negative, HIV negative ANCA and normal alpha 1 antitrypsin level, but he had abnormal LFTs. He had a CT scan during this hospitalization that will be discussed below. PAST MEDICAL HISTORY: History of DVT, PE, status post IVC filter. He is on anticoagulation by Coumadin, although there is a concern about his compliance. SOCIAL HISTORY: Smoker, although he reports quit smoking a few weeks ago and he has history of alcohol abuse, but apparently he quit. PAST SURGICAL HISTORY: No major surgery. FAMILY HISTORY: Positive for leukemia. REVIEW OF SYSTEMS: GENERAL: He reported actually no weight loss and loss of appetite, actually he is gaining weight now. He has some fatigue. EYES: He had denied any vision change and cataracts, redness, lacrimation and floaters. EAR, NOSE AND THROAT: He denied any dizziness, epistaxis, postnasal drip, sinus pain, difficulty swallowing, choking with meals. CARDIOVASCULAR: He denied any palpitations, edema. He has [place] [address] CONSULTATION Name: MOLLY SEPULVEDA Room: [address] IN [facility]#: [id number] Admission: 09/10/18 Attend Phys: Imer Interiano Discharge: Date of : 62 Report #: [id number] left side with deep breathing. He denied any syncope. RESPIRATORY: As above. GASTROINTESTINAL: He denied change in appetite recently actually, he feels he is gaining weight. He denied any vomiting, hematemesis, bleeding from any orifice. Change in bowel habits. GENITOURINARY: He denied any frequency, urgency, painful urination, nocturia or hematuria. MUSCULOSKELETAL: He denied any joint pain, swelling and joint stiffness, deformities and difficulty walking. NEUROLOGIC: He denied any seizures, blackouts, fainting, loss of sensation, paralysis and tingling sensation. PSYCHIATRIC: He denied any depression or emotional disturbances. All systems reviewed with the patient and negative other than as mentioned above. PHYSICAL EXAMINATION: VITAL SIGNS: He is on room air with saturation more than 90%, breathing 17 times a minute, pulse rate of 90 and temperature 36.6. GENERAL APPEARANCE: Awake, alert and oriented. HEAD: Normocephalic, atraumatic. EYES: Pupils are reactive to light. ORAL CAVITY: Moist mucous membranes. Mallampati of 2-3. NECK: Supple. Full range of movement. No masses felt. Trachea central. ENT: External ears looks healthy and normal nasal cavity, patent passages. CHEST: Diminished air movement bilaterally, prolonged expiratory phase. No active wheezes, some rhonchi at the right lung base. HEART: S1, S2, no murmur. ABDOMEN: Benign, soft, lax, nontender, positive bowel sounds. No masses felt, no rebound, no rigidity. EXTREMITIES: Lower extremity: No edema, no calf tenderness. SKIN: Normal for age and race. No rash. LYMPHATICS: No palpable lymph node. PSYCHIATRIC: Mood and affect, good insight and judgment. NEUROLOGIC: No focal weakness. LABORATORY DATA: His CT of the chest showed improvement in the infiltrate in the left lung field, although he still has a bullae with air fluid level. His white blood count is 8, hemoglobin 12.1 and platelets of 385. INR of 1.4, creatinine is 0.7 with a BUN of 6, chloride 104, potassium 3.8 and sodium 142. Magnesium 1.7. IMPRESSION: 1. Pneumonia. 2. Lung abscess. 3. [place] [address] CONSULTATION Name: MOLLY SEPULVEDA Room: [address]#: [id number] Admission: 09/10/18 Attend Phys: Imer Interiano Discharge: Date of : 62 Report #: [id number] 4. Chronic obstructive pulmonary disease exacerbation. 5. Noncompliance. PLAN: The patient's INR is 1.4, supposed to be on Coumadin. He is not clear why his INR is not therapeutic. Also, he did not show up for his appointment with Dr. Garnett, he just took a few days of antibiotic and go for refills. I think noncompliance is a contributing factor to the patient's lack of response to current hospitalization. At this point, he will be on IV antibiotics. Likely, he will be on 6 weeks of antibiotic at the time of discharge. We will plan for bronchoscopy on Saturday to get more samples discussed with Dr. Garnett already ordered some sputum samples and a repeat workup. He is on the finding on the previous sputum was bacillus. He will be on scheduled bronchodilators by put a hold on his Coumadin. We will keep him on Lovenox over the weekend and the patient for bronchoscopy on Saturday. I did discuss with detailed description of the procedure for the patient. He understands the benefits and the risk. We discussed this potential risk with worsening respiratory status, bronchospasm, bleeding, pneumothorax that may require a chest tube. He agreed to proceed. Thank you for the consult. <ELECTRONICALLY SIGNED> By: Tai Rodas MD 09/15/18 0953 0930 1917MD maggie Momin
[2018-09-15 16:30] VITALS: BP 108/65
[2018-09-15 20:00] VITALS: BP 115/62
[2018-09-16 07:35] VITALS: BP 113/71
[2018-09-16] MEDS ORDERED: VENTOLIN HFA 1818 GM INH (09:48)
[2018-09-16] MEDS ORDERED: LEVAQUIN 750 M750 MG PO (09:48)
[2018-09-16] MEDS ORDERED: PREDNISONE 10 M10 MG PO (09:48)
[2018-09-16 10:03] VITALS: BP 113/71
[2018-09-16 10:05] VITALS: BP 113/71
[2018-09-16 10:28] VITALS: BP 113/71
--- NOTE | 2018-09-16 10:34 | OP ---
[facility] [address] [place] [address] OPERATIVE REPORT Name: MOLLY SEPULVEDA Room: [address] IN .R.#: [id number] Admission: 09/10/18 Attend Phys: Imer Interiano Discharge: Date of : 62 Report #: [id number] THIS REPORT FOR: //name// CC: Manju Peña DATE OF SERVICE: 09/15/2018 TYPE OF PROCEDURE: Bronchoscopy, airway inspection, left upper lobe wash. INDICATION: Lung abscess, pneumonia. DESCRIPTION OF PROCEDURE: After calling a timeout, the patient was initially given 25 mcg of fentanyl and 1 mg Versed IV. During the procedure, additional 2 mg of Versed and another 50 mcg of IV fentanyl were given with a total of 75 mcg of fentanyl and 3 mg Versed given during the procedure. Bronchoscope was introduced through the left nostril with 2% lidocaine was used to anesthetize the airways. Vocal cord looks healthy, normal abduction and adduction. Trachea, some secretions were noted, although easily suctioned the airways. Inspected the right lung, right upper lobe, right middle lobe, right lower lobe to segmental bronchi; no endobronchial lesion or secretions. After that, left lung was inspected, left lower lobe. No endobronchial lesions or thick secretions. The left upper lobe division also inspected. The lingula, the lingular division, left upper lobe bronchus inspected. No endobronchial lesion, no signs of inflammation. Surprisingly, no thick secretions were noted. Wash was done from the left upper lobe. Fluid was collected with fair return. Bronchoscope was withdrawn at the end of the procedure. No immediate complications. <ELECTRONICALLY SIGNED> By: Tai Rodas MD 09/16/18 1034 1136 [id number] Rodas MD /nt
== END 2018-09-16 10:42 | disposition home or self-care (01) | DRG 177 ==
LOC: M.ERS 12:47 → M.TBA-ER 14:51 → M.3W 14:51 → M.2W 09-12 17:14 → M.ORTHSURG 09-15 08:15
PROVIDERS: Family Medicine; Internal Medicine; ADMIT Internal Medicine
PROC: 0B9G8ZX Drainage of Left Upper Lung Lobe, Via Natural or Artificial Opening Endoscopic, Diagnostic (ICD-10-PCS; principal; 2018-09-15)
DX: J85.0 Gangrene and necrosis of lung (principal); J96.20 Acute and chronic respiratory failure, unspecified whether with hypoxia or hypercapnia; J96.22 Acute and chronic respiratory failure with hypercapnia; R65.10 Systemic inflammatory response syndrome (SIRS) of non-infectious origin without acute organ dysfunction; E44.0 Moderate protein-calorie malnutrition; D68.59 Other primary thrombophilia; J85.1 Abscess of lung with pneumonia; J43.9 Emphysema, unspecified; F17.210 Nicotine dependence, cigarettes, uncomplicated; Z86.718 Personal history of other venous thrombosis and embolism; Z86.711 Personal history of pulmonary embolism; Z91.14 Patient's other noncompliance with medication regimen; Z79.01 Long term (current) use of anticoagulants; Z79.899 Other long term (current) drug therapy; Z80.6 Family history of leukemia; Z68.25 Body mass index [BMI] 25.0-25.9, adult

== ENCOUNTER → 2018-12-24 | Outpatient (CLI) | payer OTHER ==
[~2018-12-24] MED LIST changes: +COUMADIN7.5 MG PO; +LEVAQUIN 750 M750 MG PO; +PREDNISONE 10 M10 MG PO; +VENTOLIN HFA 1818 GM INH
== END ==
LOC: M.RAD 11:48
DX: J18.1 Lobar pneumonia, unspecified organism (principal)

== ENCOUNTER 2019-05-25 08:41 | Inpatient (IN) | payer OTHER ==
[~2019-05-25] VITALS: Ht 185.4 cm; Wt 112.5 kg
[2019-05-25 08:42] VITALS: BP 112/56
--- NOTE | 2019-05-25 08:51 | NUR ---
PT REFUSES GOWN AT THIS TIME
[2019-05-25] MEDS ORDERED: ACETAMINOPHEN-1 EAC2 PO (08:54)
[2019-05-25] MEDS ORDERED: PROAIR HFA8.5 GM INH (08:54)
[2019-05-25] MEDS ORDERED: IPRAT-ALBUT 0.5-3 ML INH (08:55)
[2019-05-25] MEDS ORDERED: ZESTRIL30 MG PO (08:56)
[2019-05-25] MEDS ORDERED: LINEZOLID600 MG PO (08:56)
[2019-05-25] MEDS ORDERED: PROTONIX40 M2 PO (08:57)
[2019-05-25] MEDS ORDERED: SUDAFED PE10 M2 PO (08:57)
[2019-05-25] MEDS ORDERED: MULTI VITAMIN1 EACH PO (08:57)
[2019-05-25] MEDS ORDERED: MAG-OXIDE400 MG PO (08:57)
[2019-05-25] MEDS ORDERED: KLOR-CON 1010 MEQ PO (08:58)
[2019-05-25] MEDS ORDERED: PREDNISONE 5 MG5 M1 PO (08:58)
[2019-05-25] MEDS ORDERED: TRAMADOL 50 MG50 MG PO (08:59)
[2019-05-25] MEDS ORDERED: JANTOVEN10 MG PO (08:59)
[2019-05-25] MEDS ORDERED: COUMADIN 1MG TAB1 M1 PO (08:59)
[2019-05-25 09:22] LABS: ABSOLUTE LYMPHOCYTES 0.7 thou/uL (0.8-5.3); ABSOLUTE MONOCYTES 1.6 thou/uL (0.0-1.2); ABSOLUTE NEUTROPHILS 10.8 thou/uL (1.6-8.1); BASOPHILS 0.3 %; EOSINOPHILS 0.2 %; HEMATOCRIT 32.1 % (42.0-52.0); HEMOGLOBIN 9.8 gm/dL (14.0-18.0); LYMPHOCYTES 5.3 %; MCH 22.3 pg (26.0-34.0); MCHC 30.6 g/dL (28.0-37.0); MCV 72.8 fL (80.0-100.0); NUCLEATED RBCS 0 /100WBC; PLATELET COUNT* 458 thou/uL (150-400); POLYS 82.2 %; RBC 4.41 mil/uL (4.50-6.00); RDW-CV 19.3 % (10.5-14.5); WBC 13.1 thou/uL (4.0-11.0)
[2019-05-25 09:30] LABS: CALCIUM 8.7 mg/dL (8.5-10.1); CREATININE 1.4 mg/dL (0.6-1.3); POTASSIUM 4.3 mmol/L (3.5-5.1)
[2019-05-25 09:31] LABS: INR 1.6; PROTIME 16.5 Seconds (9.20-11.50)
[2019-05-25 09:40] LABS: ALBUMIN 2.8 g/dL (3.4-5.0); MAGNESIUM 1.7 mg/dL (1.8-2.4); TOTAL BILIRUBIN 0.6 mg/dL (<0.1-1.0); TOTAL PROTEIN 7.3 g/dL (6.4-8.2)
[2019-05-25 09:52] LABS: ANISOCYTOSIS 1+; HYPOCHROMASIA 1+; PLATELET ESTIMATE ADEQUATE
[2019-05-25 12:05] VITALS: BP 144/79; BP 150/75
[2019-05-25 13:44] LABS: % SATURATION 3 % (20-39); IRON 9 ug/dL (50-175)
--- NOTE | 2019-05-25 15:28 | EKG ---
[place] [address] ELECTROCARDIOGRAM REPORT Name: MOLLY SEPULVEDA Room: [address] ADM IN M.R.#: [id number] Admission: 05/25/19 Attend Phys: Julieta strong Sa Discharge: Date of : 62 Date of Service: 05/25/19 0847 Report #: [id number] THIS REPORT FOR: //name// [facility] ED Test Date: 2019-05-25 Test Time: 08:47:01 Pat Name: MOLLY SEPULVEDA Department: Room: [facility] Gender: M Consumer Affairs Specialist: ROBIN : 1960 Requested By: Sean Kirby Order Number: [id number] MD: Clayton Rivero Measurements Intervals [place] Rate: 121 P: 94 LA: 136 QRS: 73 QRSD: 86 T: 64 QT: 333 QTc: 473 Interpretive Statements Sinus tachycardia Atrial premature complex Compared to ECG 09/10/2018 13:01:24 Atrial premature complex(es) now present T-wave abnormality no longer present Electronically Signed On 05-25-2019 15:27:24 MUSCULOSKELETAL PHYSIOTHERAPIST by Clayton Rivero [email or web address] <ELECTRONICALLY SIGNED> By: Clayton Rivero MD, [facility] 05/25/19 1527 0847 0847 Clayton Rivero MD, [facility] /EPI
[2019-05-25 15:35] LABS: PHOSPHORUS* 3.5 mg/dL (2.5-4.9)
[2019-05-25 16:36] VITALS: BP 128/71
--- NOTE | 2019-05-25 19:32 | NUR ---
RECEIVED REPORT FROM ER. PT ARRIVED TO TELE FLOOR AROUND 1205. ASSUMED CARE. PT A&O X4. ORIENTED TO ROOM, BED AND CALL LIGHT. ADMISSION ASSESSMENT, EDUCATION AND HISTORY COMPLETED CHARTED. MEDS PER EMAR. PT DENIES PAIN. 02 2L PER NC PLACED. PT UP AD BHARTI. PT CURRENTLY RESTING IN BEDSIDE RECLINER. LOW FALL RISK PRECAUTIONS IN PLACE. CALL LIGHT IS WITHIN REACH. HOURLY ROUNDING PERFORMED.
[2019-05-26] VITALS: BP 140/68
[2019-05-26 04:35] LABS: HEMATOCRIT 32.4 % (42.0-52.0); HEMOGLOBIN 9.9 gm/dL (14.0-18.0); MCH 22.5 pg (26.0-34.0); MCHC 30.5 g/dL (28.0-37.0); MCV 73.8 fL (80.0-100.0); MPV 7.4 fl. (7.2-11.1); RBC 4.39 mil/uL (4.50-6.00); RDW-CV 19.3 % (10.5-14.5); WBC 11.3 thou/uL (4.0-11.0)
[2019-05-26 05:00] VITALS: BP 115/64
[2019-05-26 05:02] LABS: CREATININE 0.8 mg/dL (0.6-1.3); POTASSIUM 4.4 mmol/L (3.5-5.1)
[2019-05-26 06:31] LABS: INR 1.6; PROTIME 15.8 Seconds (9.20-11.50)
[2019-05-26 08:00] VITALS: BP 109/62
--- NOTE | 2019-05-26 10:24 | NUR ---
Pt is A&O. Resides at home with his mom. Active and independent. No DME. No home o2, Pt anticipates that he will need o2 at dc, Ex Ox will need to be completed to confirm. No hx of HH or SNF. Goal is home, following for o2 needs.
[2019-05-26 11:54] VITALS: BP 129/66
--- NOTE | 2019-05-26 12:03 | NUR ---
ASSUMED CARE OF PT AT 0730. PT SITTING IN RECLINER WAITING FOR BREAKFAST. A&0X4, DENIES ANY PAIN OR SHORTNESS OF BREATH AT THIS TIME. PT GIVEN PAIN MEDICATION BY NOC SHIFT WITH RELIEF. TRACING ST ON THE MALT HOUSE OPERATOR. ON 2.5L NC SAT 95%. PT DOES NOT WEAR OXYGEN AT HOME. PT STATES HE HAS NOT HAD A BOWEL MOVEMENT IN [address] ROGERS NOTIFIED. ORDERS RECEIVED FOR MIRALAX AND COLACE- MEDICATIONS GIVEN. REFER TO EMAR. PT UP AD BHARTI IN ROOM. PT GOAL FOR TODAY IS TITRATE OXYGEN, PAIN MGMT AND INCREASE ACTIVITY. AM ASSESSMENT CHARTED. MEDICATIONS PER MAY. PT REPOSITIONS SELF. HOURLY ROUNDING OBSERVED. BED IN LOW POSITION. CALL LIGHT WITHIN REACH. WILL CONTINUE PLAN OF CARE.
[2019-05-26 16:20] VITALS: BP 158/52
--- NOTE | 2019-05-26 18:22 | NUR ---
NO ACUTE CHANGES THROUGHOUT SHIFT. REFER TO CHARTING. UNABLE TO TITRATE OXYGEN. PT CONTINUES TO BE ON 2.5L NC SAT UPPER 90'S. PT COMPLAINS OF SHORTNESS OF BREATH WITH EXERTION. PT COMPLAINED OF PAIN TO RIGHT RIBS THROUGHOUT SHIFT. TREATED WITH PRN HYDROCODONE WITH PARTIAL RELIEF. CONTINUES TO TRACE ST ON THE STICK WELDER. RATE IN THE 110'S. PT UP AD BHARTI IN ROOM. COUMADIN INCREASED TO 17MG TONIGHT PER DR ROGERS. INR 1.6 TODAY. MEDICATIONS PER MAY. PT REPOSITIONS SELF. HOURLY ROUNDING OBSERVED. BED IN LOW POSITION. CALL LIGHT WITHIN REACH. WILL CONTINUE PLAN OF CARE.
[2019-05-26 20:00] VITALS: BP 121/59
[2019-05-27 00:40] VITALS: BP 120/63
[2019-05-27 04:00] VITALS: BP 142/71
[2019-05-27 04:04] LABS: HEMATOCRIT 30.7 % (42.0-52.0); HEMOGLOBIN 9.6 gm/dL (14.0-18.0); MCH 22.7 pg (26.0-34.0); MCHC 31.4 g/dL (28.0-37.0); MCV 72.5 fL (80.0-100.0); RBC 4.24 mil/uL (4.50-6.00); RDW-CV 18.9 % (10.5-14.5); WBC 11.5 thou/uL (4.0-11.0)
[2019-05-27 04:51] LABS: INR 2.1; PROTIME 21.3 Seconds (9.20-11.50)
[2019-05-27 05:07] LABS: ALBUMIN 2.6 g/dL (3.4-5.0); CALCIUM 9.1 mg/dL (8.5-10.1); CREATININE 0.9 mg/dL (0.6-1.3); PHOSPHORUS* 3.2 mg/dL (2.5-4.9); POTASSIUM 4.4 mmol/L (3.5-5.1)
[2019-05-27 07:44] VITALS: BP 134/61
--- NOTE | 2019-05-27 08:50 | NUR ---
ASSUMED CARE OF PT AT 0730. PT SITTING IN RECLINER WAITING FOR BREAKFAST. A&0X4, DENIES ANY PAIN AT THIS TIME. PT GIVEN PAIN MEDICATION BY NOC SHIFT AT APPROXIMATELY 0600 WITH RELIEF. TRACING SR/ST ON THE LEGAL CONTRACTS SPECIALIST. ON 3L NC SAT UPPER 90'S. PT STATES HE HAS SHORTNESS OF BREATH WITH EXERTION. PT STATES HE STILL HAS NOT A HAD A BOWEL MOVEMENT. SCHEDULED MIRALAX AND COLACE GIVEN. PRUNE JUICE GIVEN WELL. PT ENCOURAGED TO INCREASE ACTIVITY. PT UP AD BHARTI IN ROOM. PT GOAL FOR TODAY IS INCREASE ACTIVITY, TITRATE OXYGEN AND HAVE A BOWEL MOVEMENT. AM ASSESSMENT CHARTED. MEDICATIONS PER MAY. PT REPOSITIONS SELF. HOURLY ROUNDING OBSERVED. BED IN LOW POSITION. CALL LIGHT WITHIN REACH. WILL CONTINUE PLAN OF CARE.
[2019-05-27 11:10] VITALS: BP 134/61
[2019-05-27 11:33] VITALS: BP 131/63
[2019-05-27] MEDS ORDERED: SLOW FE142 MG PO (12:02)
[2019-05-27] MEDS ORDERED: MEDROLDOSEPACK PO (12:02)
[2019-05-27 12:10] VITALS: BP 124/61
[2019-05-27] MEDS ORDERED: COUMADIN 1MG TAB1 M1 PO (12:18)
--- NOTE | 2019-05-27 12:26 | NUR ---
Pt discharging to home today, qualifies for home o2, faxed o2 order to [facility] per Pt's requested, informed that Pt will need a tank delivered to his room prior to dc. Following.
[2019-05-27] MEDS ORDERED: HYDROCODON-ACE1 EAC7 PO (13:14)
--- NOTE | 2019-05-27 15:51 | NUR ---
DISCHARGE ORDERS RECEIVED. DISCHARGE INSTRUCTIONS, CARE NOTES, SCRIPTS AND FOLLOW UP APPTS GIVEN TO PT. PT COMMUNICATES UNDERSTANDING OF DISCHARGE TEACHING. BOTH IV'S AND VACUUM TANK TENDER REMOVED. PT DISCHARGED WITH ALL BELONGINGS AND PAPERWORK VIA WHEELCHAIR WITH [employer] TO FAMILY OWN PERSONAL VEHICLE. [facility] DELIVERED OXYGEN AND PT DISCHARGING WITH OXYGEN WELL.
== END 2019-05-27 15:50 | disposition home or self-care (01) | DRG 189 ==
LOC: M.ERS 08:41 → M.2W 10:59 → M.TBA-ER 10:59 → M.2W 12:08
PROVIDERS: Emergency Medicine Emergency Medical Services; ADMIT Family Medicine
DX: J96.01 Acute respiratory failure with hypoxia (principal); R65.11 Systemic inflammatory response syndrome (SIRS) of non-infectious origin with acute organ dysfunction; E43 Unspecified severe protein-calorie malnutrition; N17.0 Acute kidney failure with tubular necrosis; J44.1 Chronic obstructive pulmonary disease with (acute) exacerbation; D68.59 Other primary thrombophilia; K21.9 Gastro-esophageal reflux disease without esophagitis; F17.210 Nicotine dependence, cigarettes, uncomplicated; E66.9 Obesity, unspecified; I12.9 Hypertensive chronic kidney disease with stage 1 through stage 4 chronic kidney disease, or unspecified chronic kidney disease; N18.2 Chronic kidney disease, stage 2 (mild); E83.42 Hypomagnesemia; D50.9 Iron deficiency anemia, unspecified; M06.9 Rheumatoid arthritis, unspecified; G47.33 Obstructive sleep apnea (adult) (pediatric); Z87.01 Personal history of pneumonia (recurrent); Z86.711 Personal history of pulmonary embolism; Z86.718 Personal history of other venous thrombosis and embolism; Z79.899 Other long term (current) drug therapy; Z79.51 Long term (current) use of inhaled steroids; Z79.01 Long term (current) use of anticoagulants; Z68.32 Body mass index [BMI] 32.0-32.9, adult

== ENCOUNTER 2020-07-14 14:54 | Inpatient (IN) | payer OTHER ==
[~2020-07-14] VITALS: Ht 188 cm; Wt 126.1 kg
[2020-07-14] VITALS (8 sets, daily range): BP systolic 88–158; BP diastolic 48–71
[~2020-07-14 14:54] MED LIST changes: +ACETAMINOPHEN-1 EAC2 PO; +COUMADIN 1MG TAB1 M1 PO; +HYDROCODON-ACE1 EAC7 PO; +IPRAT-ALBUT 0.5-3 ML INH; +JANTOVEN10 MG PO; +LINEZOLID600 MG PO; +MAG-OXIDE400 MG PO; +MEDROLDOSEPACK PO; +MULTI VITAMIN1 EACH PO; +PREDNISONE 5 MG5 M1 PO; +PROAIR HFA8.5 GM INH; +PROTONIX40 M2 PO; +SLOW FE142 MG PO; +SUDAFED PE10 M2 PO; +TRAMADOL 50 MG50 MG PO; +ZESTRIL30 MG PO
[2020-07-14 15:19] LABS: ABSOLUTE LYMPHOCYTES 1.1 thou/uL (0.8-5.3); ABSOLUTE MONOCYTES 1.2 thou/uL (0.0-1.2); ABSOLUTE NEUTROPHILS 9.8 thou/uL (1.6-8.1); BASOPHILS 0.2 %; EOSINOPHILS 0.1 %; HEMATOCRIT 49.8 % (42.0-52.0); HEMOGLOBIN 15.5 gm/dL (14.0-18.0); MCH 32.5 pg (26.0-34.0); MCHC 31.2 g/dL (28.0-37.0); MCV 104.2 fL (80.0-100.0); MONOCYTES 9.8 %; MPV 7.4 fl. (7.2-11.1); NUCLEATED RBCS 1 /100WBC; PLATELET COUNT* 270 thou/uL (150-400); POLYS 80.9 %; RBC 4.78 mil/uL (4.50-6.00); RDW-CV 16.3 % (10.5-14.5); WBC 12.1 thou/uL (4.0-11.0)
[2020-07-14 15:33] LABS: BUN 29 mg/dL (7-18); CALCIUM 8.7 mg/dL (8.5-10.1); CHLORIDE 100 mmol/L (98-107); CREATININE 1.3 mg/dL (0.6-1.3); GLUCOSE 184 mg/dL (70-99); POTASSIUM 5.1 mmol/L (3.5-5.1); SODIUM 146 mmol/L (136-145)
[2020-07-14 15:34] LABS: CO2 > 45 mmol/L (21-32)
--- NOTE | 2020-07-14 15:38 | NUR ---
SEE NURSES NOTES FOR ADDITIONAL DOCUMENTATION.
[2020-07-14 15:40] LABS: APTT 25.3 Seconds (25.0-31.3); INR 1.2; PROTIME 12.4 Seconds (9.20-11.50)
[2020-07-14 15:48] LABS: ALBUMIN 3.9 g/dL (3.4-5.0); ALKALINE PHOSPHATASE 116 U/L (46-116); CK-MB MASS 4.7 ng/mL (<0.5-3.6); NT-PRO BRAIN NAT PEPTIDE 1709 pg/mL (<300); SGOT 56 U/L (15-37); SGPT 68 U/L (30-65); TOTAL BILIRUBIN 0.9 mg/dL (<0.1-1.0); TOTAL PROTEIN 8.7 g/dL (6.4-8.2)
--- NOTE | 2020-07-14 15:55 | EKG ---
[place] [address] ELECTROCARDIOGRAM REPORT Name: MOLLY SEPULVEDA Room: [facility]#: [id number] Admission: 07/14/20 Attend Phys: Discharge: Date of : 62 Date of Service: 07/14/20 1502 Report #: [id number] THIS REPORT FOR: //name// [facility] ED Test Date: 2020-07-14 Test Time: 15:02:14 Pat Name: MOLLY SEPULVEDA Department: Room: Gender: Newborn Hearing Screener: [facility] : 1960 Requested By: Edwar Pisano Order Number: [id number] MD: Clayton Rivero Measurements Intervals [place] Rate: 108 P: 83 DE: 149 QRS: 87 QRSD: 92 T: 40 QT: 342 QTc: 459 Interpretive Statements Sinus tachycardia Probable left atrial enlargement Compared to ECG 05/25/2019 08:47:01 Atrial premature complex(es) no longer present Electronically Signed On 07-14-2020 15:54:55 CDT by Clayton Rivero [email or web address] <ELECTRONICALLY SIGNED> By: Clayton Rivero MD, [facility] 07/14/20 1554 1502 1502 Clayton Rivero MD, [facility] /EPI
[2020-07-14 16:24] LABS: BE 12.4 mmol/L (-2 to +3)
[2020-07-14 16:27] LABS: pH 7.226 (7.340-7.450)
[2020-07-14 16:28] LABS: PCO2 112.9 mmHg (35.0-45.0); PO2 326.3 mmHg (75.0-100.0)
--- NOTE | 2020-07-14 16:34 | NUR ---
PT'S WALLET GIVEN TO SECURITY
--- NOTE | 2020-07-14 16:36 | NUR ---
PT'S WATCH GIVEN TO SECURITY
--- NOTE | 2020-07-14 16:50 | NUR ---
RIGHT BASILIC VESSEL ACCESSED FOR 5 PALAUAN TRIPLE PICC. LINE PRE-TRIMMED TO 43CM AND ADVANCED TO THE ZERO NORMA WITH NO RESISTANCE MET. UPPER ARM CIRCUMFERENCE ABOVE INSERTION SITE=15". SHERLOCK MAGNET AND 3CG CONFIRMATION OF TIP TERMINATION AT THE CAVOATRIAL JUNCTION APPRECIATED. GUIDEWIRE REMOVED, LINE FLUSHED AND INSERTION SITE DRESSED. REPORT GIVEN TO FELIPE ESPINOZA.
[2020-07-14 16:55] LABS: URINE BLOOD 2+ (Negative); URINE CLARITY SL CLOUDY; URINE COLOR DARK YELLOW; URINE GLUCOSE-RANDOM TRACE (Negative); URINE KETONES NEGATIVE (Negative); URINE LEUKOCYTES-REFLEX NEGATIVE (Negative); URINE NITRITE-REFLEX NEGATIVE (Negative); URINE PROTEIN 3+ (Negative); URINE SPECIFIC GRAVITY >= 1.030 (1.005-1.030)
[2020-07-14 17:03] LABS: ICTOTEST (BILI CONFIRMATORY) Negative (Negative); URINE BILIRUBIN 2+ (Negative)
[2020-07-14 17:06] LABS: BACTERIA-REFLEX 1-9 Few /HPF (None Seen); HYALINE CASTS >10 Many /LPF (None Seen); SQUAMOUS 4-10 Moderate /LPF (0-3)
[2020-07-14 17:07] LABS: CRYSTALS None Seen /LPF (None Seen); MUCUS None Seen strn/LPF (None Seen); URINE RBC 3-10 Few /HPF (0-2); URINE WBC-REFLEX 6-15 Few /HPF (0-5)
[2020-07-14 17:17] LABS: AMP/METHAMP Negative (Negative); BARBITURATES Negative (Negative); BENZODIAZEPINES POSITIVE (Negative); COCAINE Negative (Negative); METHADONE Negative (Negative); OPIATES Negative (Negative); PCP Negative (Negative); THC Negative (Negative)
--- NOTE | 2020-07-14 19:16 | NUR ---
PT ARRIVED FROM ER AT 1722. SEE ASSESSMENT CHARTED. FAMILY AT BEDSIDE. INTUBATED AND SEDATED. IMPULSIVE WHILE SUCTIONING TO GRAB TUBE. RESTRAINTS ORDERED AND APPLIED. WILL GIVE REPORT TO ONCOMING RN.
[2020-07-14 23:07] LABS: BE 13.6 mmol/L (-2 to +3); pH 7.432 (7.340-7.450)
[2020-07-14 23:09] LABS: PCO2 62.9 mmHg (35.0-45.0); PO2 133.8 mmHg (75.0-100.0)
[2020-07-15] VITALS (51 sets, daily range): BP systolic 103–164; BP diastolic 53–98
[2020-07-15 03:19] LABS: HEMATOCRIT 42.8 % (42.0-52.0); HEMOGLOBIN 13.7 gm/dL (14.0-18.0); MCH 32.6 pg (26.0-34.0); MCV 101.8 fL (80.0-100.0); MPV 7.4 fl. (7.2-11.1); RBC 4.21 mil/uL (4.50-6.00); RDW-CV 15.8 % (10.5-14.5)
[2020-07-15 03:51] LABS: APTT 26.3 Seconds (25.0-31.3); INR 1.2; PROTIME 12.6 Seconds (9.20-11.50)
[2020-07-15 03:53] LABS: ALBUMIN 2.8 g/dL (3.4-5.0); CALCIUM 8.3 mg/dL (8.5-10.1); CREATININE 1.1 mg/dL (0.6-1.3); MAGNESIUM 2.3 mg/dL (1.8-2.4); PHOSPHORUS* 1.1 mg/dL (2.5-4.9); TOTAL BILIRUBIN 1.1 mg/dL (<0.1-1.0); TOTAL PROTEIN 6.2 g/dL (6.4-8.2)
[2020-07-15 03:56] LABS: POTASSIUM 3.5 mmol/L (3.5-5.1)
--- NOTE | 2020-07-15 04:57 | NUR ---
PT HAVING DECORTICATE POSTURING AT START OF SHIFT AFTER TURN AND ORAL CARE. PT BITES ET TUBE WHEN STIMULATED. PT ATTEMPTS TO PULL AT LINES. PT FOLLOWED COMMAND TO LOOSEN CRANE OILER AND RELAX ARM. PT ONTINUED ON PROPOFOL AND VERSED DRIP FOR SEDATION. NO ACUTE CHANGES DURING SHIFT, WILL CONTINUE TO MONITOR CLOSELY.
[2020-07-15 11:18] LABS: BE 11.7 mmol/L (-2 to +3); PO2 69.6 mmHg (75.0-100.0); pH 7.433 (7.340-7.450)
[2020-07-15 11:19] LABS: PCO2 59.1 mmHg (35.0-45.0)
--- NOTE | 2020-07-15 11:20 | EKG ---
[place] [address] ELECTROCARDIOGRAM REPORT Name: MOLLY SEPULVEDA Room: [address] ADM IN M.R.#: [id number] Admission: 07/14/20 Attend Phys: Brian Huggins Discharge: Date of : 62 Date of Service: 07/15/2003 Report #: [id number] THIS REPORT FOR: //name// [facility] Test Date: 2020-07-15 Test Time: 08:03:07 Pat Name: MOLLY SEPULVEDA Department: Room: [address] Gender: M Health And Nutrition Specialist: PATRICIA : 1960 Requested By: Brian Huggins Order Number: [id number] Reading MD: Clayton Rivero Measurements Intervals [place] Rate: 113 P: 83 [place]: 143 QRS: 80 QRSD: 79 T: 80 QT: 358 QTc: 491 Interpretive Statements Sinus tachycardia Borderline prolonged QT interval Compared to ECG 07/14/2020 15:02:14 No significant changes Electronically Signed On 07-15-2020 11:20:28 CDT by Clayton Rivero [email or web address] <ELECTRONICALLY SIGNED> By: Clayton Rivero MD, [facility] 07/15/20 1120 0803 0803 Clayton Rivero MD, [facility] /EPI
--- NOTE | 2020-07-15 13:29 | 2DMMODE ---
[place] [address] 2 D/M-MODE ECHOCARDIOGRAM Name: MOLLY SEPULVEDA Room: 006-P [facility] IN .R.#: [id number] Admission: 07/14/20 Attend Phys: Brian Huggins Discharge: Date of : 62 Date of Service: 07/15/20 1329 Report #: [id number] THIS REPORT FOR: cc: Manju Freeman Maggie M. DO Blick, David R. MD [facility] ~ APPROVED REPORT Study performed: 07/15/2020 09:35:23 EXAM: Comprehensive 2D, Doppler, and color-flow Echocardiogram Patient Location: In-Patient Room #: 006 Status: routine BSA: 2.48 HR: 112 bpm BP: 119/64 mmHg Rhythm: NSR Other Information Study Quality: Technically Difficult Technically limited study due to body habitusand off axis imaging. Indications Congestive Heart Failure 2D Dimensions IVSd: 11.95 (7-11mm) LVOT Diam: 22.11 (18-24mm) LVDd: 46.53 mm PWd: 10.18 (7-11mm) Ascending Ao: 32.36 (22-36mm) LVDs: 34.41 (25-40mm) Aortic Root: 31.88 mm Aortic Valve AoV Peak Trae.: 1.23 m/s AO Peak Gr.: 6.04 mmHg LVOT Max P.75 mmHg AO Mean Gr.: 3.88 mmHg LVOT Mean P.97 mmHg LVOT Max V: 0.97 m/s AO V2 VTI: 19.46 cm LVOT Mean V: 0.65 m/s AILYN (VTI): 3.88 cm2 LVOT V1 VTI: 19.68 cm Mitral Valve E/A Ratio: 0.40 [place] [address] 2 D/M-MODE ECHOCARDIOGRAM Name: MOLLY SEPULVEDA Room: [address] IN .R.#: [id number] Admission: 07/14/20 Attend Phys: Brian Huggins Discharge: Date of : 62 Date of Service: 07/15/20 1329 Report #: [id number] MV Decel. Time: 64.72 ms MV E Max Trae.: 0.38 m/s MV PHT: 18.77 ms MVA (PHT): 11.72 cm2 Pulmonary Valve PV Peak Trae.: 1.17 m/s PV Peak Gr.: 5.45 mmHg Left Ventricle The left ventricle is normal size. There is normal LV segmental wall motion. There is normal left ventricular wall thickness. Left ventricular systolic function is normal. The left ventricular ejection fraction is within the normal range. LVEF is 55-60%. Grade I - abnormal relaxation pattern. Right Ventricle Right ventricle is dilated. The right ventricular systolic function is normal. Atria The left atrium size is normal. Right atrium is dilated. Aortic Valve The aortic valve is not well visualized. No aortic regurgitation is present. There is no aortic valvular stenosis. Mitral Valve The mitral valve is normal in structure. There is no mitral valve regurgitation noted. No evidence of mitral valve stenosis. Tricuspid Valve The tricuspid valve is normal in structure. Unable to assess PA pressure. Trace tricuspid regurgitation. Pulmonic Valve Pulmonic valve is not well visualized. There is no pulmonic valvular regurgitation. Great Vessels The aortic root is normal in size. IVC is dilated. Pericardium There is no pericardial effusion. <Conclusion> [place] [address] 2 D/M-MODE ECHOCARDIOGRAM Name: MOLLY SEPULVEDA Room: [address] IN .R.#: [id number] Admission: 07/14/20 Attend Phys: Brian Huggins Discharge: Date of : 62 Date of Service: 07/15/20 1329 Report #: [id number] Left ventricular systolic function is normal. The left ventricular ejection fraction is within the normal range. <ELECTRONICALLY SIGNED> By: Clayton Rivero MD, [facility] 07/15/20 1329 132 28 Clayton Rivero MD, [facility] /INF
--- NOTE | 2020-07-15 13:39 | NUR ---
PLAN OF CARE: PT CURRENTLY INTUBATED AND SEDATED. PHYSICIAN INFORMS THAT PT WILL LIKELY REMAIN INPT THRU THE WEEKEND. CM SPOKE TO PT'S MOTHER AND SHE INFORMS THAT THE PT RESIDES AT HOME WITH HER. PT NORMALLY INDEPENDENT WITH ADL'S. PT USES HOME OXYGEN PROVIDED BY [facility], BUT HIS MOTHER DID NOT KNOW THE LITER FLOW. NO OTHER DME. PT HAS 0 HX OF HH OR SNF. CM WILL REMAIN AVAILABLE TO ASSIT AND FOLLOW NEEDED.
[2020-07-15 13:59] LABS: CALCIUM 8.1 mg/dL (8.5-10.1); CREATININE 1.1 mg/dL (0.6-1.3); MAGNESIUM 2.5 mg/dL (1.8-2.4); POTASSIUM 3.7 mmol/L (3.5-5.1)
--- NOTE | 2020-07-15 14:00 | NUR ---
GOAL RATE ON THE TUBE FEEDING 50 MLS/HR PER SRIRAM, AS400 ANALYST.
--- NOTE | 2020-07-15 14:57 | CON ---
[facility] [address] [place] [address] CONSULTATION Name: MOLLY SEPULVEDA Room: [address] ADM IN M.R.#: [id number] Admission: 07/14/20 Attend Phys: Imer Mcdonough Discharge: Date of : 62 Report #: [id number] THIS REPORT FOR: cc: Manju Freeman Maggie M. DO Blick,Clayton Silver MD [facility] ~ DATE OF SERVICE: 07/15/2020 CARDIOLOGY CONSULTATION HISTORY OF PRESENT ILLNESS: The patient is a 60-year-old white male who I was asked to see in the ICU today after he is noted to have an abnormal troponin. The history is obtained from the old records. There are no family members available. The patient is currently sedated and on the ventilator. He has had several hospitalizations here at [place] in the past. He was admitted here in 07/2018 with a pulmonary embolus, DVT, emphysema. He has a history of noncompliance. The patient was last admitted to [place] in 05/2019 with an exacerbation of COPD. He apparently does have IVC filter in place. He apparently lives in [place] with his mother. Apparently yesterday morning, mother found him unresponsive in his room. He has a history of alcohol abuse. He was brought here to [place] and intubated. Cardiology consultation requested. There has been no history of chest pain, syncope, palpitations. PAST MEDICAL HISTORY: Significant for thromboembolic disease. CURRENT MEDICATIONS: Consist of warfarin, hydrocodone, Protonix, albuterol inhaler, lisinopril, tramadol. ALLERGIES: No known drug allergies. SOCIAL HISTORY: He is an active smoker. He abuses alcohol. REVIEW OF SYSTEMS: The patient is overweight. There has been no history of stroke, liver disease, kidney disease or cancer. PHYSICAL EXAMINATION: GENERAL: Revealed a large male, lying in bed. He is on a ventilator. VITAL SIGNS: He had a blood pressure of 130/70, pulse is 90, he is afebrile. HEENT: He was anicteric. Conjunctivae pink. Mucous membranes moist. NECK: Veins do not appear distended. CHEST: Revealed expiratory wheezes. CARDIOVASCULAR: Regular rate and rhythm. No murmurs. ABDOMEN: Obese. EXTREMITIES: Had trace edema. Dorsalis pedis pulse 2+. [place] [address] CONSULTATION Name: MOLLY SEPULVEDA Room: [address]#: [id number] Admission: 07/14/20 Attend Phys: Imer Mcdonough Discharge: Date of : 62 Report #: [id number] SKIN: Cool and dry. NEUROLOGIC: He would respond to painful stimuli. RADIOLOGICAL DATA: ECG shows a sinus rhythm with no significant ST- or T-wave change. The patient had an echocardiogram done in 2018 that showed ejection fraction of 60%. X-rays: The patient had a CT scan of the head on admission that showed no acute abnormality. His chest x-ray showed normal heart size, clear lung escudero. LABORATORY DATA: Sodium 149, creatinine 1.1. His liver function studies were normal. Troponin minimally elevated at 0.09. His white blood cell count 10.0, hemoglobin 13.7. IMPRESSION AND RECOMMENDATIONS: 1. Borderline elevation of troponin. No acute myocardial infarction. No history of angina. No ECG changes noted. Recommend no further cardiac evaluation. 2. History of alcohol abuse. 3. Tobacco abuse. 4. History of thromboembolic disease. 5. Hypertension. The patient has been on an ABNER inhibitor. <ELECTRONICALLY SIGNED> By: Clayton Rivero MD, FACC 07/15/20 1457 [id number] Rivero MD, FACC /nt
--- NOTE | 2020-07-15 18:23 | CON ---
[address] [address] CONSULTATION Name: MOLLY SEPULVEDA Room: [address] ADM IN M.R.#: [id number] Admission: 07/14/20 Attend Phys: Imer Mcdonough Discharge: Date of : 62 Report #: [id number] THIS REPORT FOR: cc: Manju Freeman Maggie M. DO Pervez, Adeel MD ~ DATE OF SERVICE: 07/15/2020 REQUESTING PHYSICIAN: Brian Huggins DO HISTORY OF PRESENT ILLNESS: This is a 60-year-old gentleman with past medical history as mentioned below. This does include a history of COPD as well as alcohol abuse. 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 He has had DVT and PE in the past, is reported to be on Coumadin at home. However, there does appear to be a history of noncompliance. His INR was 1.2 at admission. He is reported to be an active smoker. At this time, the patient is admitted with unresponsiveness/altered mental status. There is a possibility of patient having seizures as well. He is reported to have earlier been hallucinating and now was found slumped over by family. The patient upon arrival of EMS did have a pulse at home; however, required to be bagged with an Ambu bag immediately. The patient was subsequently endotracheally intubated. Currently, the patient is stable on the ventilator. He is on 50% FiO2 and 5 of PEEP. Initially, he was significantly acidotic with a pCO2 elevated to 113. This has now come down to 59 and pH has now normalized to 7.433. He has normal blood pressure, though remains tachycardic, heart rate is around 115-220 in sinus tachycardia rhythm. He is febrile with a temperature of 37.5. There is copious thick sputum being suctioned from his ET tube. His ET tube is high in the trachea. There is significant warmth and erythema of his lower extremities. The patient is on the ventilator; and therefore, is unable to provide a further history or review of systems. PAST MEDICAL HISTORY: COPD, information regarding whether the patient has been on oxygen and/or CPAP at home not available; DVT, PE, previously had an IVC filter placed, has been on Coumadin for fci; however, his INR is 1.2 on admission; therefore, it appears that he has noncompliance; large emphysematous bulla, left lung; lung abscess, left lung. Previous bronchoscopy at records are in [facility], reported to previously had had a normal ANCA, normal alpha-1 antitrypsin and HIV negative based on workup performed in 2019. The patient's last available echocardiogram is from 2019 and shows a left ventricular ejection fraction of 60-65% with [place] [address] CONSULTATION Name: MOLLY SEPULVEDA Room: [address] IN .R.#: [id number] Admission: 07/14/20 Attend Phys: Imer Mcdonough Discharge: Date of : 62 Report #: [id number] 30-35. Gastroesophageal reflux disease; broken wrist; both hand and lower extremity fractures; rib fractures in the past; chronic sinusitis. SOCIAL HISTORY: There is an extensive history of smoking, unable to quantify exactly at this time. Also, history of heavy alcohol use. The patient does take prescribed narcotics at home. There is no known history of illegal drug use. CURRENT MEDICATIONS: List in [facility] reviewed. HOME MEDICATIONS: List also in An[facility] reviewed. Also, see discussion above. It appears the patient was prescribed Coumadin, but he may not have been compliant with it. ALLERGIES: No known drug allergies. FAMILY HISTORY: No pertinent family history known at this time. PHYSICAL EXAMINATION: GENERAL: He is on Versed as well as a propofol infusion, has a tidal volume of 500 and AC rate set at 18, which I just decreased to 14, 50% FiO2 and 5 of PEEP. VITAL SIGNS: He is tachycardic, heart rate is 115 and a sinus tachycardia rhythm. Temperature is mildly elevated to 37.5, blood pressure 138/84. He is saturating in the high 90s. Respiratory rate was 18, which was a set rate on the ventilator at that time. Body mass index elevated to 35.1. HEENT: Head is normocephalic and atraumatic. Pupils are bilaterally constricted and poorly reactive. Note that he is reported to take narcotics at home; however, he tested negative for narcotics on initial presentation and I do not see any narcotics administered since then. The endotracheal tube is high in the trachea. NECK: Does not show raised JVP, asymmetry, mass or lymph nodes. CHEST: Symmetrical expansion on inspection and palpation. On auscultation, breath sounds are bilaterally equal, but decreased. I do not hear any added sounds. HEART: Regular, tachycardia noted. No murmur. ABDOMEN: Soft and nontender. EXTREMITIES: Lower extremities show 1+ edema. There is significant warmth and erythema of lower extremities noted. I could not fully ascertain tenderness as he is on sedation. There is 1+ edema as well. SKIN: Consistent with chronic venous insufficiency. It is possible there is arterial insufficiency as well. NEUROLOGICAL: He did move all extremities to pain, otherwise, is limited due to sedation. [address] [place] [address] CONSULTATION Name: MOLLY SEPULVEDA Room: [address] ADM IN M.R.#: [id number] Admission: 07/14/20 Attend Phys: Imer Mcdonough Discharge: Date of : 62 Report #: [id number] LABORATORY DATA: The patient's lab work including several ABGs, chemistries, hematology, coagulation studies, toxicology screen, and urinalysis in [facility] reviewed. COVID-19 antigen negative. ASSESSMENT AND PLAN: 1. Aeily-bu-ufclzfw hypercarbic respiratory failure. We will cut back on his AC rate. We will titrate down FiO2 as tolerated. Otherwise, we will continue current ventilator settings for now. We will advance the ET tube. I will go ahead and start a fentanyl drip after which if his blood pressure holds then we will continue current dose of propofol, but we will try to cut back on his Versed drip. 2. Chronic obstructive pulmonary disease exacerbation. We will start Solu-Medrol. We will also start nebulized bronchodilators as he is tachycardic. I am initially ordering Xopenex and Atrovent. Xopenex could be switched over to albuterol later if his heart rate improves. 3. Pulmonary infiltrates. He has a large emphysematous bulla and previously had had an abscess in the left lung. There is some increase in infiltration around this bulla. He also has copious thick secretions from his ET tube. I agree with Calin. I understand he previously has records of being treated with linezolid; however, I do not see any positive culture for MRSA. For now, I held off on adding MRSA coverage, but we will follow. If he declines, we will consider the same. 4. History of heavy alcohol intake/high risk for alcohol withdrawal, sedation as above. We will plan on giving him thiamine and folate as well. 5. Erythema of lower extremities/possible cellulitis/history of deep venous thrombosis and pulmonary embolism. I would like to do an echo and would like to do venous Dopplers. We will check a D-dimer. We will review these and then decide as to whether a CTA chest is indicated. Regardless, I agree with giving him full-dose Lovenox for now. Discussion regarding antibiotics is as above. 6. Hypernatremia/mild rhabdomyolysis. The patient's rhabdomyolysis appears to have already resolved by now. He does need IV fluids; however, I will be inclined to cut back. He is currently receiving 125 mL an hour. I ordered repeat labs now. I will review and then comment further. 7. Gastrointestinal prophylaxis, Protonix. 8. Clostridium difficile prophylaxis. We will go ahead and add a probiotic. The patient is critically ill at this time. Total time spent providing critical care to this patient today exceeds 45 minutes. <ELECTRONICALLY SIGNED> By: Sanjay Govea MD 07/15/20 1823 1301 [id number] Govea MD /nt
--- NOTE | 2020-07-15 18:47 | NUR ---
FENTANYL DRIP STARTED AND VERSED TITRATING DOWN PER DR ZAMAN. PROPOFOL CONTD AT 30. 1/2 NS CONTD AT 125 MLS/HR. VSS. Q2 TURNS AND ORAL CARE PROVIDED. POLA IN THE ROOM BRIEFLY. MOM UPDATED OVER THE PHONE.
[2020-07-16] VITALS (79 sets, daily range): BP systolic 93–121; BP diastolic 45–74
[2020-07-16 04:59] LABS: BE 10.4 mmol/L (-2 to +3); PO2 68.6 mmHg (75.0-100.0)
[2020-07-16 04:59] LABS: HEMATOCRIT 41.1 % (42.0-52.0); HEMOGLOBIN 13.1 gm/dL (14.0-18.0); MCH 32.4 pg (26.0-34.0); MCHC 31.9 g/dL (28.0-37.0); MCV 101.5 fL (80.0-100.0); MPV 7.9 fl. (7.2-11.1); RBC 4.04 mil/uL (4.50-6.00); RDW-CV 16.1 % (10.5-14.5); WBC 7.3 thou/uL (4.0-11.0)
[2020-07-16 05:01] LABS: PCO2 79.8 mmHg (35.0-45.0)
[2020-07-16 05:19] LABS: ALBUMIN 2.3 g/dL (3.4-5.0); ALKALINE PHOSPHATASE 74 U/L (46-116); ANION GAP < 0 mmol/L (7-16); BUN 20 mg/dL (7-18); CALCIUM 7.9 mg/dL (8.5-10.1); CHLORIDE 105 mmol/L (98-107); CO2 41 mmol/L (21-32); CREATININE 1.1 mg/dL (0.6-1.3); GLUCOSE 206 mg/dL (70-99); MAGNESIUM 2.5 mg/dL (1.8-2.4); POTASSIUM 3.7 mmol/L (3.5-5.1); SGOT 21 U/L (15-37); SGPT 32 U/L (30-65); SODIUM 145 mmol/L (136-145); TOTAL BILIRUBIN 0.8 mg/dL (<0.1-1.0)
--- NOTE | 2020-07-16 07:42 | NUR ---
RECEIVED REPORT AND ASUMED CARE AT 1900. ASSESSMENT COMPLETED CHARTED. PT LOW GRADE FEVER, MAX 101.1 PRN MEDICATION GIVEN. 98.8 BY END OF SHIFT. NO ACUTE CHANGES ON THIS SHIFT. POSITION CHANGED Q2H, HEELS OFF LOADED. ROUNDING COMPLETED AND ALL NEEDS MET.
--- NOTE | 2020-07-16 18:09 | NUR ---
this development writer assumed care of pt at 1500 assessment as charted no sedation vacation or weaning trial today family updated at bedside will cont to lynette brown
[2020-07-17] VITALS (78 sets, daily range): BP systolic 89–128; BP diastolic 41–79
[2020-07-17 04:50] LABS: HEMATOCRIT 42.1 % (42.0-52.0); HEMOGLOBIN 13.3 gm/dL (14.0-18.0); MCH 32.4 pg (26.0-34.0); MCHC 31.6 g/dL (28.0-37.0); MCV 102.6 fL (80.0-100.0); MPV 7.8 fl. (7.2-11.1); RBC 4.1 mil/uL (4.50-6.00); WBC 8.8 thou/uL (4.0-11.0)
[2020-07-17 05:27] LABS: ALBUMIN 2.3 g/dL (3.4-5.0); ALKALINE PHOSPHATASE 74 U/L (46-116); ANION GAP < 0 mmol/L (7-16); BUN 18 mg/dL (7-18); CHLORIDE 107 mmol/L (98-107); CO2 43 mmol/L (21-32); GLUCOSE 238 mg/dL (70-99); MAGNESIUM 2.5 mg/dL (1.8-2.4); POTASSIUM 4.2 mmol/L (3.5-5.1); SGOT 32 U/L (15-37); SGPT 33 U/L (30-65); SODIUM 146 mmol/L (136-145); TOTAL BILIRUBIN 0.6 mg/dL (<0.1-1.0); TOTAL PROTEIN 6.2 g/dL (6.4-8.2)
[2020-07-17 05:29] LABS: BE 10.9 mmol/L (-2 to +3); PO2 78.9 mmHg (75.0-100.0); pH 7.332 (7.340-7.450)
[2020-07-17 05:30] LABS: PCO2 78.1 mmHg (35.0-45.0)
--- NOTE | 2020-07-17 18:31 | NUR ---
ASSUMED CARE 0700.ASSESSMENTS COMPLETED, SEE CHART FOR DETAILS. NOTED DISCREPANCY IN TF GOAL RATE FROM WHAT WAS PREVIOUSLY REPORTED AND WHAT WAS ORDERED, PAGED DR HEBERT TO CLARIFY, ORDERS RCVD FOR GOAL RATE OF 40ML/HR, TF RATE CHANGED. TORO FLUSHED WITH 20 CC NS TO PREVENT CLOGGING DUE TO SEDIMENT. VITAL SIGNS CHARTED. NO S/S OF DISTRESS. WILL CONTINUE TO MONITOR PT.
[2020-07-18] VITALS (45 sets, daily range): BP systolic 89–153; BP diastolic 41–96
[2020-07-18 05:27] LABS: HEMATOCRIT 42.7 % (42.0-52.0); HEMOGLOBIN 13.6 gm/dL (14.0-18.0); MCH 32.4 pg (26.0-34.0); MCHC 31.7 g/dL (28.0-37.0); MCV 102.2 fL (80.0-100.0); MPV 7.7 fl. (7.2-11.1); RBC 4.18 mil/uL (4.50-6.00); RDW-CV 15.8 % (10.5-14.5); WBC 6.8 thou/uL (4.0-11.0)
[2020-07-18 05:39] LABS: ALBUMIN 2.4 g/dL (3.4-5.0); CALCIUM 8.1 mg/dL (8.5-10.1); CREATININE 0.9 mg/dL (0.6-1.3); MAGNESIUM 2.3 mg/dL (1.8-2.4); POTASSIUM 4.3 mmol/L (3.5-5.1); TOTAL BILIRUBIN 0.4 mg/dL (<0.1-1.0); TOTAL PROTEIN 6.3 g/dL (6.4-8.2)
[2020-07-18 05:46] LABS: BE 6.9 mmol/L (-2 to +3); pH 7.382 (7.340-7.450)
[2020-07-18 05:49] LABS: PCO2 58.5 mmHg (35.0-45.0); PO2 148.1 mmHg (75.0-100.0)
--- NOTE | 2020-07-18 15:00 | NUR ---
FAILED WEANING TRIAL THIS AFTERNOON. VENT SETTINGS CHANGED PER ORDERS. PLAN TRIAL AGAIN TOMORROW.
--- NOTE | 2020-07-18 15:34 | NUR ---
PLAN: PT REMAINS ON THE VENT. PLAN TO EXTUBATE PT WITHIN 48HRS. CM SPOKE TO THE PT'S MOTHER TO DISCUSS HIS INSURANCE, AND SHE INFORMS THAT HE HAS INSURANCE. HOWEVER SHE DOES NOT KNOW WHAT IT IS. SHE ALSO INFORMS THAT HE TAKES HIS MEDS DAILY. MED ASSIST CONSULTED AND TO ASSIST WITH HELPING TO CONFIRMS PT'S INSURANCE STATUS. CM WILL REMAIN AVAILABLE TO ASSIST AND FOLLOW NEEDED.
[2020-07-18 15:47] LABS: BE 6.4 mmol/L (-2 to +3); pH 7.394 (7.340-7.450)
[2020-07-18 15:49] LABS: PCO2 55.6 mmHg (35.0-45.0)
[2020-07-19] VITALS (47 sets, daily range): BP systolic 116–155; BP diastolic 66–90
--- NOTE | 2020-07-19 05:15 | NUR ---
FOUND PATIENT LAYING IN A PUDDLE OF TUBE FEEDING VOMITED FROM THE MOUTH. TUBE FEEDING HELD AND OG REMOVED. TIP OF OG CLOGGED WITH MEDICATION. WILL PLACE NEW OG
[2020-07-19 05:18] LABS: ABSOLUTE LYMPHOCYTES 0.8 thou/uL (0.8-5.3); ABSOLUTE MONOCYTES 0.8 thou/uL (0.0-1.2); ABSOLUTE NEUTROPHILS 5.7 thou/uL (1.6-8.1); BASOPHILS 0.2 %; EOSINOPHILS 0.1 %; HEMATOCRIT 45.9 % (42.0-52.0); HEMOGLOBIN 14.9 gm/dL (14.0-18.0); LYMPHOCYTES 11.1 %; MCH 32.6 pg (26.0-34.0); MCHC 32.5 g/dL (28.0-37.0); MCV 100.2 fL (80.0-100.0); MONOCYTES 10.9 %; MPV 7.9 fl. (7.2-11.1); NUCLEATED RBCS 0 /100WBC; PLATELET COUNT* 186 thou/uL (150-400); POLYS 77.7 %; RBC 4.58 mil/uL (4.50-6.00); RDW-CV 15.4 % (10.5-14.5); WBC 7.4 thou/uL (4.0-11.0)
[2020-07-19 05:31] LABS: PHOSPHORUS* 3.3 mg/dL (2.5-4.9)
[2020-07-19 05:34] LABS: ALBUMIN 2.5 g/dL (3.4-5.0); CALCIUM 8.7 mg/dL (8.5-10.1); CREATININE 0.9 mg/dL (0.6-1.3); MAGNESIUM 2.2 mg/dL (1.8-2.4); POTASSIUM 4.2 mmol/L (3.5-5.1); TOTAL BILIRUBIN 0.6 mg/dL (<0.1-1.0); TOTAL PROTEIN 6.4 g/dL (6.4-8.2)
[2020-07-19 05:50] LABS: BE 9.3 mmol/L (-2 to +3); PO2 81.8 mmHg (75.0-100.0); pH 7.402 (7.340-7.450)
[2020-07-19 05:53] LABS: PCO2 60.4 mmHg (35.0-45.0)
--- NOTE | 2020-07-19 07:21 | NUR ---
ASSESSMENTS CHARTED. TUBE FEEDING ON HOLD UNTIL XRAY CONFIRMS OG PLACEMENT IN REPORT. TITRATED FIO2 DOWN TO 40%. ET TUBE PULLED OUT SLIGHTLY DURING THE SHIFT. RETURNED BACK TO ORIGINAL POSITION. REMAINS ON CURRENT SEDATION. PLAN FOR WEANING TRIAL IN AM. NO BM THIS SHIFT, PASSING FLATUS. ABG RESULTS CALLED TO DR. ZAMAN WHO REFUSED TO ADDRESS CRITICAL VALUES. FOLLOWED UP WITH DR. HEBERT. NO ORDERS RECIEVED. NO OTHER SIGNIFICANT EVENTS OVERNIGHT.
--- NOTE | 2020-07-19 09:39 | NUR ---
WOUND NURSE: PATIENT SEEN TO ADDRESS 2 SKIN TEARS ON THE RIGHT UPPER EXTREMITY. PROXIMAL WUND MEASURES 1.5 X 1.0 X 0.1, NO SKIN FLAP, PARTIAL THICKNESS TISSUE LOSS WITH RED, NONGRANULATING TISSUE PRESENT. SMALL AMOUNT OF SEROUS DRAINAGE NOTED. DISTAL WOUND MEASURES 3.0 X 5.0 X 0.1 CM, SKIN FLAP IS WELL APPROXIMATED, BUT LOOSELY ADHERED, SMALL AMOUNT OF SEROUSANGUINOUS DRAINAGE NOTED, ECCHYMOSIS PRESENT. BOTH CLEANSED WITH WOUND CLEANSER AND GAUZE. APPLIED OILEMULSION GAUZE UNDER BORDERED FOAM DRESSING. PLAN TO HAVE CHANGED EVERY 3 DAYS AND PRN. PATIENT IS NOT TEACHEABLE.
--- NOTE | 2020-07-19 11:33 | NUR ---
PT ROUNDS: PT REMAINS ON VENT, WEAN TRAILS DID NOT GO WELL YESTERDAY. RT TO TEST PT AGAIN TODAY.
[2020-07-19 12:40] LABS: BE 13.5 mmol/L (-2 to +3); pH 7.381 (7.340-7.450)
[2020-07-19 12:41] LABS: PCO2 74.1 mmHg (35.0-45.0)
[2020-07-19 17:58] LABS: MAGNESIUM 2.3 mg/dL (1.8-2.4); POTASSIUM 4.7 mmol/L (3.5-5.1)
--- NOTE | 2020-07-19 18:41 | NUR ---
ASSUMED CARE 0700, ASSESSMENTS COMPLETED, SEE CHART FOR DETAILS. VITALS CHARTED. PT EXTUBATED PER ORDERS. PRECEDEX REMAINS INFUSING PER ORDERS. TF DC'D, PT REQUIRING BIPAP AT THIS TIME SO REMAINS NPO, SLIDING SCALE CHANGED TO LOW DOSE PER ORDERS. PT REMAINS CONFUSED, ATTEMPTS TO REMOVE BIPAP AND GET OUT OF BED. BED ALARM ON. FREQUENT RE-ORIENTATION AND EDUCATION NEEDED/PROVIDED, PT DOES NOT COMPREHEND AT THIS TIME. COMFORT NEEDS ASSESSED FREQUENTLY. PT DOES NOT COMPLY WITH REPOSITIONING, ORAL CARE, SAFETY PRECAUTIONS. BLINDS OPEN AT ALL TIMES, MONITORING PT CLOSELY.
[2020-07-20] VITALS (22 sets, daily range): BP systolic 124–158; BP diastolic 62–88
[2020-07-20 05:30] LABS: HEMATOCRIT 48.9 % (42.0-52.0); HEMOGLOBIN 15.8 gm/dL (14.0-18.0); MCH 32.8 pg (26.0-34.0); MCHC 32.3 g/dL (28.0-37.0); MCV 101.3 fL (80.0-100.0); MPV 7.9 fl. (7.2-11.1); NUCLEATED RBCS 0 /100WBC; PLATELET COUNT* 208 thou/uL (150-400); RBC 4.83 mil/uL (4.50-6.00); RDW-CV 15.2 % (10.5-14.5)
[2020-07-20 05:45] LABS: ALBUMIN 2.8 g/dL (3.4-5.0); CALCIUM 8.9 mg/dL (8.5-10.1); CREATININE 0.9 mg/dL (0.6-1.3); MAGNESIUM 2.2 mg/dL (1.8-2.4); POTASSIUM 4.7 mmol/L (3.5-5.1); TOTAL BILIRUBIN 1.2 mg/dL (<0.1-1.0); TOTAL PROTEIN 7.4 g/dL (6.4-8.2)
[2020-07-20 06:13] LABS: ABSOLUTE LYMPHOCYTES 0.5 thou/uL (0.8-5.3); ABSOLUTE MONOCYTES 0.1 thou/uL (0.0-1.2); ABSOLUTE NEUTROPHILS 8.4 thou/uL (1.6-8.1); ANISOCYTOSIS 1+; PLATELET ESTIMATE ADEQUATE; POIKILOCYTOSIS 1+
[2020-07-20 08:29] LABS: BE 2.9 mmol/L (-2 to +3); PO2 75.8 mmHg (75.0-100.0); pH 7.358 (7.340-7.450)
[2020-07-20 08:31] LABS: PCO2 54.4 mmHg (35.0-45.0)
--- NOTE | 2020-07-20 15:25 | NUR ---
Case and plan of care reviewed with MD -Ernie when sleeping, 4L nc when awake, baseline at home is 2L nc. Plan is for transfer out of ICU to Tele today Discharges needs anticipated as of today are Trilogy set up and continue custodial O2. CM will continue to follow for discharge planning needs
[2020-07-21] VITALS (16 sets, daily range): BP systolic 123–160; BP diastolic 70–93
[2020-07-21 06:21] LABS: HEMATOCRIT 49.3 % (42.0-52.0); HEMOGLOBIN 15.7 gm/dL (14.0-18.0); MCHC 31.8 g/dL (28.0-37.0); MCV 100.5 fL (80.0-100.0); MPV 8.5 fl. (7.2-11.1); RBC 4.91 mil/uL (4.50-6.00); RDW-CV 15.8 % (10.5-14.5); WBC 11.3 thou/uL (4.0-11.0)
[2020-07-21 06:31] LABS: CALCIUM 9.1 mg/dL (8.5-10.1); CREATININE 0.9 mg/dL (0.6-1.3); POTASSIUM 3.8 mmol/L (3.5-5.1)
--- NOTE | 2020-07-21 14:36 | NUR ---
PATIENT ARRIVED FROM ICU PER W/C. PATIENT IS ALERT AND ORIENTED. PLACED ON TELE MONITOR. TELE SHOWS ST WITH PACS. NO C/O AT THIS TIME.
[2020-07-22 04:29] LABS: HEMATOCRIT 48.9 % (42.0-52.0); HEMOGLOBIN 15.7 gm/dL (14.0-18.0); MCH 32.4 pg (26.0-34.0); MCHC 32.2 g/dL (28.0-37.0); MCV 100.7 fL (80.0-100.0); MPV 8.5 fl. (7.2-11.1); RBC 4.85 mil/uL (4.50-6.00); RDW-CV 15.9 % (10.5-14.5)
[2020-07-22 04:35] VITALS: BP 119/84
[2020-07-22 04:38] LABS: CALCIUM 9.6 mg/dL (8.5-10.1); CREATININE 0.8 mg/dL (0.6-1.3); MAGNESIUM 2.2 mg/dL (1.8-2.4); POTASSIUM 4.1 mmol/L (3.5-5.1)
--- NOTE | 2020-07-22 05:09 | NUR ---
ASSESSMENTS COMPLETED AT BEDSIDE, PLEASE REFER TO CHARTING FOR DETAILS. MEDICATIONS ADMINISTERED PER MAR. PT REPORTS NO C/O PAIN OR DISCOMFORT AT THIS TIME. HOURLY ROUNDING COMPLETED FOR PT SAFETY. PT IS UP IN WHEEL CHAIR STATES THAT IT IS THE MOST COMFORTABLE FOR HIM. PT HAD 1 EPISODE OF LOOSE STOOL, LARGE AMOUNT NOTED. CURRENTLY ASLEEP IN WHEEL CHAIR WITH CALL LIGHT WITHIN REACH.
[2020-07-22 08:00] VITALS: BP 128/93
[2020-07-22] MEDS ORDERED: XARELTO20 MG PO (11:47)
[2020-07-22 11:52] VITALS: BP 143/86
--- NOTE | 2020-07-22 13:10 | NUR ---
PLAN OF CARE: PHYSICIAN INFORMS OF PLAN TO D/C PT HOME TODAY WITH SELF-CARE. CM SPOKE TO PT AND HE INFORMS THAT HE HAS ALL NEEDED DME AT HOME INCLUDING WALKER, WHEELCHAIR, AND HOME OXYGEN. PT ALSO INFORMS THAT HIS DTR IS ON HER WAY TO PROVIDE TRANSPORTATION HOME. CM SPOKE TO THE PT TO DISCUSS THE POSSIBITY OF HAVING HH AT D/C. PT DECLINED STATING 'MY MOM WON'T LET ANYONE IN OUR HOUSE AND I DON'T REALLY WANT IT ANYWAYS'. CM INFORMED NURING OF ALL OF THE ABOVE. CM WILL REMAIN AVAILABLE TO ASSIST AND FOLLOW NEEDED
[2020-07-22 14:01] VITALS: BP 143/86
--- NOTE | 2020-07-22 16:11 | NUR ---
PT DC INSTRUCTIONS REVIEWED WITH DTR. PT UNSTEADY AND WILL HELP WITH AMBULATING DISTANCES. DTR STATES SHE WILL AVAILABLE TO HELP. PT DC VIA WC. O2@L WHICH HE HAS AT HOME
--- NOTE | 2020-07-23 08:31 | NUR ---
PLEASE NOTE PT WAS DISCHARGED FROM HOSPITAL BEFORE P.T. EVAL COULD BE INITIATED.
== END 2020-07-22 16:00 | disposition home or self-care (01) | DRG 207 ==
LOC: M.ERS 14:54 → M.TBA-ER 16:21 → M.ICU 16:21 → M.2W 07-21 14:19
PROVIDERS: Family Medicine; Internal Medicine; Internal Medicine Critical Care Medicine; ADMIT Internal Medicine; ATTEND Internal Medicine
PROC: 02HV33Z Insertion of Infusion Device into Superior Vena Cava, Percutaneous Approach (ICD-10-PCS; principal; 2020-07-14)
PROC: 0BH17EZ Insertion of Endotracheal Airway into Trachea, Via Natural or Artificial Opening (ICD-10-PCS; principal; 2020-07-14)
PROC: 5A1955Z Respiratory Ventilation, Greater than 96 Consecutive Hours (ICD-10-PCS; principal; 2020-07-14)
PROC: 5A09357 Assistance with Respiratory Ventilation, Less than 24 Consecutive Hours, Continuous Positive Airway Pressure (ICD-10-PCS; 2020-07-19)
DX: J96.22 Acute and chronic respiratory failure with hypercapnia (principal); G93.41 Metabolic encephalopathy; I21.A1 Myocardial infarction type 2; J44.1 Chronic obstructive pulmonary disease with (acute) exacerbation; E87.0 Hyperosmolality and hypernatremia; M62.82 Rhabdomyolysis; E87.2 Acidosis; D68.69 Other thrombophilia; F10.239 Alcohol dependence with withdrawal, unspecified; K21.9 Gastro-esophageal reflux disease without esophagitis; I10 Essential (primary) hypertension; J96.21 Acute and chronic respiratory failure with hypoxia; F19.10 Other psychoactive substance abuse, uncomplicated; Z20.822 Contact with and (suspected) exposure to COVID-19; Z86.711 Personal history of pulmonary embolism; Z86.718 Personal history of other venous thrombosis and embolism; Z79.01 Long term (current) use of anticoagulants